=== PATIENT | female | born 1965 | race Hispanic/Latino ===

== ENCOUNTER 2016-11-22 19:20 | Emergency (ER) | payer MEDICAID ==
[2016-11-22] MEDS ORDERED: PROVENTIL IH ONE ×2 (19:52→19:57)
[2016-11-22 21:03] VITALS: BP 100/55
[2016-11-23] MEDS ORDERED: DUONEB 0.5 MG-3 MG/3 ML SOLN IH ONE (01:25)
[2016-11-23] MEDS ORDERED: MOTRIN PO ONE (01:26)
--- NOTE | 2016-11-23 01:32 | Emergency Department Report ---
HPI - General Chief Complaint: Adult Asthma Time Seen by Provider: 11/23/16 01:23 - HPI HPI: 51-year-old female comes in with complaint of shortness of breath with a nonproductive cough for 7 days. Patient admits to having fever and cough. She has a history of asthma. The patient is allergic to Levaquin and prednisone. ED Past Medical Hx - Past Medical History Previous Medical History?: Yes Hx Asthma: Yes - Surgical History Past Surgical History?: Yes Hx Cholecystectomy: Yes Additional Surgical History: Tonsils, Teeth - Social History Smoking Status: Never Smoker Substance Use Type: None - Medications Home Medications: Home Medications Medication Instructions Recorded Confirmed Last Taken Type ALBUTEROL Inhaler [Proair] 2 puff IH QID PRN #1 inhalation 11/23/16 Unknown Rx ED Review of Systems ROS: Stated complaint: VEE Other details as noted in HPI Constitutional: chills, fever Respiratory: cough, shortness of breath, wheezing Cardiovascular: denies: chest pain, palpitations Endocrine: no symptoms reported Physical Exam - Physical Exam Vital Signs: Vital Signs 11/22/16 11/22/16 11/22/16 19:59 20:09 20:58 Temperature 99.2 F Pulse Rate 115 H Pulse Rate [ 110 H 98 H Posterior Bilateral] Respiratory 22 Rate Respiratory 20 18 Rate [Posterior Bilateral] Blood Pressure 100/55 [Right] O2 Sat by Pulse 96 Oximetry General: GENERAL: Alert and oriented x3, no apparent distress, Normal Gait, atraumatic. Patient is actively coughing on exam. Physical Exam: HEAD: Head is normocephalic and a-traumatic. EYES: Extra ocular muscles are intact. Pupils are equal, round, and reactive to light and accommodation. EARS: symetrical, atraumatic, non tender, ear canal clear and moderate cerumen, tympanic membrance non inflamed. gross auditory nml bilaterally. NOSE: Nose symetrical, Nontender,Nares appeared normal. MOUTH:Mouth is well hydrated and without lesions. Tonsils nonerythematous or swollen, Uvula midline, Tongue not elevated. Mucous membranes are moist. Posterior pharynx clear, no exudate or lesions. Patent airways. She has no teeth NECK: Supple. Non edematous, No carotid bruits. No lymphadenopathy or thyromegaly. LUNGS: Symetrical with respiration, bilateral inspiratory and expiratory wheeze with mild crackles on the right lower lung. Sounds congested HEART: S1, S2 present, tachycardia rate and rhythm without murmur, no rubs, no gallops. ABDOMEN: No organomegaly was noted,Positive bowel sounds, soft, and non- distended. . Nontender to palpation on all Quadrants, NO CVA tenderness. NEUROLOGIC: No focal Deficit, Cranial nerves II through XII are grossly intact. No loss of sensation, No facial droop, PSYCHIATRIC: Mood is congruent with affect, denies suicidal or homicidal ideations. SKIN: Warm and dry, No lesions, No ulceration or induration present ED Course Vital Signs 11/22/16 11/22/16 11/22/16 19:59 20:09 20:58 Temperature 99.2 F Pulse Rate 115 H Pulse Rate [ 110 H 98 H Posterior Bilateral] Respiratory 22 Rate Respiratory 20 18 Rate [Posterior Bilateral] Blood Pressure 100/55 [Right] O2 Sat by Pulse 96 Oximetry - Reevaluation(s) Reevaluation #1: 11/23/16 03:52 Patient was reevaluated by this provider her lungs are clear now patient reports she feels much better ED Medical Decision Making - Lab Data Result diagrams: 11/23/16 01:30 11/23/16 01:30 - Medical Decision Making Assessment evaluated by this provider fast track. No labs have been drawn orders were placed at 1923. It's now 1:30 1 in the morning. We will order another round of dual nebs. Order Motrin 800 mg by mouth for fever. Will reevaluate patient. Critical care attestation.: If time is entered above; I have spent that time in minutes in the direct care of this critically ill patient, excluding procedure time. ED Disposition Clinical Impression: Asthma Qualifiers: Asthma severity: unspecified severity Asthma complication type: uncomplicated Qualified Code(s): J45.909 - Unspecified asthma, uncomplicated Disposition: DISCHARGED TO HOME OR SELFCARE Is pt being admited?: No Does the pt Need Aspirin: No Condition: Stable Instructions: Asthma (ED) Additional Instructions: Please use her inhaler as prescribed. Follow up with her primary care provider. We have referred to to one listed below. Prescriptions: ALBUTEROL Inhaler [Proair] 2 puff IH QID PRN #1 inhalation PRN Reason: Shortness Of Breath Referrals: PRIMARY CARE, [Primary Care Provider] - 3-5 Days JEANETTE PENALOZA MD [Staff Physician] - 3-5 Days
--- NOTE | 2016-11-23 01:53 | XRay Report ---
FINAL REPORT EXAM: XR CHEST ROUTINE 2V HISTORY: Shortness of breath COMPARISON: None available. FINDINGS:: Frontal and lateral views of the chest obtained. Cardiac silhouette is within normal limits. No focal consolidation or effusion. No pneumothorax. Visualized bony thorax is grossly intact. Mild calcification aortic arch. Mild hyperinflation of the lungs. IMPRESSION:: No focal consolidation. Mild hyperinflation of the lungs. There may be mild underlying COPD/emphysema.
[2016-11-23 02:24] LABS: Anion Gap 19 mmol/L; BUN/Creatinine Ratio 28.75; Blood Urea Nitrogen 23 mg/dL (7-17); Calcium 8.7 mg/dL (8.4-10.2); Carbon Dioxide 26 mmol/L (22-30); Chloride 99.7 mmol/L (98-107); Glucose 99 mg/dL (65-100); Potassium 3.7 mmol/L (3.6-5.0); Sodium 141 mmol/L (137-145)
[2016-11-23 02:54] LABS: Basophils % (Auto) 0.2 % (0.0-1.8); Eosinophils % (Auto) 0.1 % (0.0-4.3); Hematocrit 36.6 % (30.3-42.9); Hemoglobin 12.3 gm/dl (10.1-14.3); Mean Corpuscular HGB Conc 34 % (30-34); Mean Corpuscular Hemoglobin 30 pg (28-32); Mean Corpuscular Volume 88 fl (79-97); Platelet Count 142 K/mm3 (140-440); Red Blood Count 4.15 M/mm3 (3.65-5.03); Red Cell Distribution Width 13.3 % (13.2-15.2); White Blood Count 4.3 K/mm3 (4.5-11.0)
== END 2016-11-23 04:42 | disposition home or self-care (01) ==
LOC: ED 19:20
DX: J45.909 Unspecified asthma, uncomplicated (principal)
CPT/HCPCS: 36415; 71020; 80048; 84484; 84703; 85025; 94640

== ENCOUNTER 2019-04-14 12:30 | Emergency (ER) | payer MEDICAID ==
--- NOTE | 2019-04-14 12:38 | Emergency Department Report ---
Blank Doc - Documentation Documentation: This is a 54-year-old female that presents with lower back and right hip pain s/p fall. This initial assessment/diagnostic orders/clinical plan/treatment(s) is/are subject to change based on patient's health status, clinical progression and re- assessment by fellow clinical providers in the ED. Further treatment and workup at subsequent clinical providers discretion. Patient/guardians urged not to elope from the ED as their condition may be serious if not clinically assessed and managed. Initial orders include: 1- Patient sent to [facility] for further evaluation and treatment 2- xrays
[2019-04-14 12:47] VITALS: BP 111/69
--- NOTE | 2019-04-14 14:13 | XRay Report ---
X-RAY SPINE, ONE VIEW HISTORY: Pain. IMPRESSION: A single AP view of the lumbar spine and pelvis is presented. No lateral view is presente d. There appears to be normal height and alignment of the lumbar vertebra. No obvious fracture or bon e lesion. Mild degenerative changes are noted at L4-5 and L5-S1. The sacrum and SI joints are unremar kable. Signer Name: Delvin Donohue Jr, MD Signed: 04/14/2019 2:08 PM Workstation Name: [id number]
--- NOTE | 2019-04-14 14:18 | XRay Report ---
Right hip, 2 views INDICATION: pain s/p fall. COMPARISON: None. IMPRESSION: No acute osseous or soft tissue abnormality. No significant DJD. Signer Name: Delvin Donohue Jr, MD Signed: 04/14/2019 2:13 PM Workstation Name: [id number]
== END 2019-04-14 12:45 | disposition left against medical advice (07) ==
LOC: ED 12:30
DX: M79.604 Pain in right leg (principal); M25.551 Pain in right hip; Z53.21 Procedure and treatment not carried out due to patient leaving prior to being seen by health care provider
CPT/HCPCS: 72020

== ENCOUNTER 2019-09-14 03:02 | Emergency (ER) | payer MEDICAID ==
[2019-09-14 03:56] VITALS: BP 132/78
[2019-09-14] MEDS ORDERED: IBUPROFEN 800 MG TAB PO ONE (07:13)
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
--- NOTE | 2019-09-14 08:38 | XRay Report ---
LEFT KNEE 2 VIEWS INDICATION: pain after fall. COMPARISON: None. IMPRESSION: Normal bone mineralization. A small avulsed bony fragment measuring 1.9 x 0.4 cm is iden tified from the medial distal femur at the insertion site of the proximal MCL. This presumably repres ents an acute avulsion injury. The remaining bony structures are intact. No significant joint pathol ogy is appreciated. Suprapatellar bursa is inadequately imaged on the lateral view. Consider consulta tion with orthopedics. Signer Name: Delvin Donohue Jr, MD Signed: 09/14/2019 8:34 AM Workstation Name: [id number]
== END 2019-09-14 10:09 | disposition home or self-care (01) ==
LOC: ED 03:02
PROC: 2W3MX1Z Immobilization of Left Lower Extremity using Splint (ICD-10-PCS; principal; 2019-09-14)
DX: S82.002A Unspecified fracture of left patella, initial encounter for closed fracture (principal); M25.571 Pain in right ankle and joints of right foot; M25.572 Pain in left ankle and joints of left foot; F17.200 Nicotine dependence, unspecified, uncomplicated; J44.9 Chronic obstructive pulmonary disease, unspecified; Z90.49 Acquired absence of other specified parts of digestive tract; Z98.51 Tubal ligation status; Z79.899 Other long term (current) drug therapy; Y04.8XXA Assault by other bodily force, initial encounter; Y93.89 Activity, other specified; Y92.89 Other specified places as the place of occurrence of the external cause; Y99.8 Other external cause status

== ENCOUNTER 2019-12-27 23:55 | Emergency (ER) | payer MEDICAID ==
[2019-12-28 00:10] VITALS: BP 112/66
--- NOTE | 2019-12-28 03:45 | Emergency Department Report ---
ED Shortness of Breath HPI - General Chief Complaint: Dyspnea/Respdistress Stated Complaint: VEE Time Seen by Provider: 12/28/19 00:54 Source: patient, EMS Mode of arrival: Ambulatory Limitations: No Limitations - History of Present Illness Initial Comments: 54 yo F, hx of asthma, presents to ED with SOB. Pt requesting albuterol MDI refill. Pt denies fever, reports cough. Pt denies contact with anyone who has tested positive for COVID-19 MD Complaint: shortness of breath, "asthma attack" -: days(s) (3) Severity: mild Consistency: intermittent Improves With: rest Worsens With: exertion Known History Of: asthma Treatments Prior to Arrival: none - Related Data Previous Rx's Medication Instructions Recorded Last Taken Type Budesoni/Formotero 160-4.5(Nf) 2 puff IH BID #1 inha 01/05/14 Unknown Rx [Symbicort 160-4.5] Montelukast Sodium [Singulair] 10 mg PO DAILY #30 tablet 01/05/14 Unknown Rx Albuterol INH(or & Nicu Only) 2 puff IH QID PRN #1 inhalation 02/28/14 Unknown Rx [ProAir HFA Inhaler] Azithromycin [Zithromax TAB] 500 mg PO QDAY #5 tablet 02/28/14 Unknown Rx Loratadine (Nf) [Claritin] 10 mg PO DAILY #30 tablet 02/28/14 Unknown Rx predniSONE [Deltasone] 50 mg PO QDAY #5 tab 02/28/14 Unknown Rx Albuterol INH(or & Nicu Only) 2 puff IH QID PRN #1 inhalation 11/23/16 Unknown Rx [Proair] Acetaminophen with Codeine 1 each PO Q6HR PRN #12 tablet 09/14/19 Unknown Rx [Acetaminophen-Codeine #2 TAB] Allergies Allergy/AdvReac Type Severity Reaction Status Date / Time No Known Allergies Allergy Verified 09/14/19 03:07 ED Review of Systems ROS: Stated complaint: VEE Other details as noted in HPI Comment: All other systems reviewed and negative Constitutional: denies: fever Respiratory: cough, wheezing Cardiovascular: denies: chest pain ED Past Medical Hx - Past Medical History Previous Medical History?: Yes Hx Psychiatric Treatment: No Hx Asthma: Yes Hx COPD: Yes - Surgical History Past Surgical History?: Yes Hx Cholecystectomy: Yes Additional Surgical History: tubal ligation. tosillectomy - Social History Smoking Status: Current Some Day Smoker Substance Use Type: None - Medications Home Medications: Home Medications Medication Instructions Recorded Confirmed Last Taken Type Budesoni/Formotero 160-4.5(Nf) 2 puff IH BID #1 inha 01/05/14 Unknown Rx [Symbicort 160-4.5] Montelukast Sodium [Singulair] 10 mg PO DAILY #30 tablet 01/05/14 Unknown Rx Albuterol INH(or & Nicu Only) 2 puff IH QID PRN #1 inhalation 02/28/14 Unknown Rx [ProAir HFA Inhaler] Azithromycin [Zithromax TAB] 500 mg PO QDAY #5 tablet 02/28/14 Unknown Rx Loratadine (Nf) [Claritin] 10 mg PO DAILY #30 tablet 02/28/14 Unknown Rx predniSONE [Deltasone] 50 mg PO QDAY #5 tab 02/28/14 Unknown Rx Albuterol INH(or & Nicu Only) 2 puff IH QID PRN #1 inhalation 11/23/16 Unknown Rx [Proair] Acetaminophen with Codeine 1 each PO Q6HR PRN #12 tablet 09/14/19 Unknown Rx [Acetaminophen-Codeine #2 TAB] ED Physical Exam - General Limitations: No Limitations General appearance: alert, in no apparent distress - Head Head exam: Present: atraumatic, normocephalic - Eye Eye exam: Present: normal appearance - ENT ENT exam: Present: mucous membranes moist - Neck Neck exam: Present: normal inspection - Respiratory Respiratory exam: Present: wheezes (very faint). Absent: respiratory distress - Cardiovascular Cardiovascular Exam: Present: regular rate, normal rhythm - GI/Abdominal GI/Abdominal exam: Present: soft. Absent: distended - Extremities Exam Extremities exam: Present: normal inspection - Neurological Exam Neurological exam: Present: alert, oriented X3 - Psychiatric Psychiatric exam: Present: normal affect, normal mood - Skin Skin exam: Present: warm, dry, intact, normal color ED Course Vital Signs 12/28/19 12/28/19 00:08 01:03 Pulse Rate 106 H Respiratory 18 Rate Blood Pressure 112/66 O2 Sat by Pulse 92 91 Oximetry ED Medical Decision Making - Medical Decision Making 54 yo F w/ asthma. Requesting refill on albuterol. Does not want neb treatment or CXR. Pt denies fever, but refusing temperature check. Pt then eloped and never returned. Pt in no respiratory distress, appeared nontoxic. - Differential Diagnosis asthma, pneumonia, Critical care attestation.: If time is entered above; I have spent that time in minutes in the direct care of this critically ill patient, excluding procedure time. ED Disposition Clinical Impression: Asthma exacerbation Disposition: ELOPED Is pt being admited?: No Condition: Stable Referrals: PRIMARY CARE, [Primary Care Provider] - 3-5 Days
== END 2019-12-28 01:07 | disposition left against medical advice (07) ==
LOC: ED 23:55
DX: J45.901 Unspecified asthma with (acute) exacerbation (principal); F17.200 Nicotine dependence, unspecified, uncomplicated; Z90.49 Acquired absence of other specified parts of digestive tract; Z98.51 Tubal ligation status; Z90.79 Acquired absence of other genital organ(s); Z79.899 Other long term (current) drug therapy

== ENCOUNTER 2020-08-15 16:31 | Emergency (ER) | payer MEDICAID ==
[2020-08-15 16:43] VITALS: BP 122/50
[2020-08-15] MEDS ORDERED: IPRATROPIUM 0.02% NEBU 2.5 ML IH ONE ×2 (16:51→22:38)
[2020-08-15] MEDS ORDERED: ALBUTEROL 2.5 MG/3 ML NEBU IH ONE ×2 (16:51→22:38)
[2020-08-15] MEDS ORDERED: dexAMETHasone 20 MG/5 ML VIAL IV ONE (16:51)
--- NOTE | 2020-08-15 16:51 | Event Note ---
ED Screening Note ED Screening Note: +cough with productive cough +SOB +wheezing +chills no v/d no fever PMHx asthma has not used anything in october 2019 for asthma tachycardia, hypoxia placed on oxygen This initial assessment/diagnostic orders/clinical plan/treatment(s) is/are subject to change based on patients health status, clinical progression and re- assessment by fellow clinical providers in the ED. Further treatment and workup at subsequent clinical providers discretion. Patient/guardian urged not to elope from the ED as their condition may be serious if not clinically assessed and managed. Initial orders include: labs CXR neb tx steroid
[2020-08-15] MEDS ORDERED: predniSONE 20 MG TAB PO ONE (22:38)
[2020-08-15] MEDS ORDERED: AZITHROMYCIN 250 MG TAB PO ONE (22:38)
--- NOTE | 2020-08-15 22:43 | Emergency Department Report ---
ED Asthma HPI - General Chief Complaint: Upper Respiratory Infection Stated Complaint: RESP ISSUES PUI?: No Time Seen by Provider: 08/15/20 16:49 Source: patient Mode of arrival: Ambulatory Limitations: No Limitations - History of Present Illness Initial Comments: Chief complaint: Shortness of breath wheezing cough HPI: This is a 35-year-old female with history of COPD, asthma, tobacco dependence who presents with shortness of breath cough for several days. She denies fever. She does have sputum production. She denies body aches. She is concerned about possible pneumonia. She denies chest pain. Denies abdominal pain. She feels slightly better with breathing treatment. She does not require oxygen. Oxygen saturation 98% on room air in triage. Patient politely declined lab work. When asked about chest radiograph she states that "however I do not have one.". Complaint: shortness of breath, wheezing -: Gradual, days(s) (Several days) Asthma History: history of frequent attac Severity: mild Context: medication non-compliance Associated Symptoms: productive cough - Related Data Previous Rx's Medication Instructions Recorded Last Taken Type Budesoni/Formotero 160-4.5(Nf) 2 puff IH BID #1 inha 01/05/14 Unknown Rx [Symbicort 160-4.5] Montelukast Sodium [Singulair] 10 mg PO DAILY #30 tablet 01/05/14 Unknown Rx Albuterol Mdi (or & Nicu Only) 2 puff IH QID PRN #1 inhalation 02/28/14 Unknown Rx [ProAir HFA Inhaler] Azithromycin [Zithromax TAB] 500 mg PO QDAY #5 tablet 02/28/14 Unknown Rx Loratadine (Nf) [Claritin] 10 mg PO DAILY #30 tablet 02/28/14 Unknown Rx predniSONE [Deltasone] 50 mg PO QDAY #5 tab 02/28/14 Unknown Rx Albuterol Mdi (or & Nicu Only) 2 puff IH QID PRN #1 inhalation 11/23/16 Unknown Rx [Proair] Acetaminophen with Codeine 1 each PO Q6HR PRN #12 tablet 09/14/19 Unknown Rx [Acetaminophen-Codeine #2 TAB] Doxycycline Hyclate [Doxycycline 100 mg PO Q12HR 7 Days #14 tab 08/15/20 Unknown Rx Hyclate TAB] Prednisone [predniSONE 10 mg 10 mg PO .TAPER #1 tab.ds.pk 08/15/20 Unknown Rx (6-Day Pack, 21 Tabs)] Allergies Allergy/AdvReac Type Severity Reaction Status Date / Time No Known Allergies Allergy Verified 08/15/20 16:36 ED Review of Systems ROS: Stated complaint: RESP ISSUES Other details as noted in HPI Comment: All other systems reviewed and negative Constitutional: denies: fever, malaise Respiratory: cough, shortness of breath, wheezing Cardiovascular: denies: chest pain Gastrointestinal: denies: abdominal pain, nausea, vomiting ED Past Medical Hx - Past Medical History Previous Medical History?: Yes Hx Psychiatric Treatment: No Hx Asthma: Yes Hx COPD: Yes - Surgical History Past Surgical History?: Yes Hx Cholecystectomy: Yes Additional Surgical History: tubal ligation. tosillectomy - Social History Smoking Status: Current Every Day Smoker Substance Use Type: None - Medications Home Medications: Home Medications Medication Instructions Recorded Confirmed Last Taken Type Budesoni/Formotero 160-4.5(Nf) 2 puff IH BID #1 inha 01/05/14 Unknown Rx [Symbicort 160-4.5] Montelukast Sodium [Singulair] 10 mg PO DAILY #30 tablet 01/05/14 Unknown Rx Albuterol Mdi (or & Nicu Only) 2 puff IH QID PRN #1 inhalation 02/28/14 Unknown Rx [ProAir HFA Inhaler] Azithromycin [Zithromax TAB] 500 mg PO QDAY #5 tablet 02/28/14 Unknown Rx Loratadine (Nf) [Claritin] 10 mg PO DAILY #30 tablet 02/28/14 Unknown Rx predniSONE [Deltasone] 50 mg PO QDAY #5 tab 02/28/14 Unknown Rx Albuterol Mdi (or & Nicu Only) 2 puff IH QID PRN #1 inhalation 11/23/16 Unknown Rx [Proair] Acetaminophen with Codeine 1 each PO Q6HR PRN #12 tablet 09/14/19 Unknown Rx [Acetaminophen-Codeine #2 TAB] Doxycycline Hyclate [Doxycycline 100 mg PO Q12HR 7 Days #14 tab 08/15/20 Unknown Rx Hyclate TAB] Prednisone [predniSONE 10 mg 10 mg PO .TAPER #1 tab.ds.pk 08/15/20 Unknown Rx (6-Day Pack, 21 Tabs)] ED Physical Exam - General Limitations: No Limitations General appearance: alert, in no apparent distress, other (Disheveled appearance, dirty clothing,) - Head Head exam: Present: atraumatic, normocephalic - Eye Eye exam: Present: normal appearance - ENT ENT exam: Present: mucous membranes moist - Neck Neck exam: Present: normal inspection, full ROM - Respiratory Respiratory exam: Present: wheezes, prolonged expiratory. Absent: rales, rhonchi, accessory muscle use - Cardiovascular Cardiovascular Exam: Present: regular rate, normal rhythm, normal heart sounds. Absent: systolic murmur, diastolic murmur, rubs, gallop - GI/Abdominal GI/Abdominal exam: Present: soft, normal bowel sounds. Absent: distended, tenderness, guarding, rebound - Extremities Exam Extremities exam: Present: normal inspection - Neurological Exam Neurological exam: Present: alert, oriented X3, normal gait (Steady normal gait) - Psychiatric Psychiatric exam: Present: normal affect, normal mood - Skin Skin exam: Present: warm, dry, intact, normal color. Absent: rash ED Course Vital Signs 08/15/20 08/15/20 08/15/20 16:42 16:43 17:10 Temperature 99.2 F 99.2 F Pulse Rate 121 H Pulse Rate [ 82 Throughout] Respiratory 24 24 Rate Respiratory 16 Rate [ Throughout] Blood Pressure 122/50 Blood Pressure 122/50 [Right] O2 Sat by Pulse 88 Oximetry 08/15/20 23:24 Temperature Pulse Rate Pulse Rate [ 88 Throughout] Respiratory Rate Respiratory 16 Rate [ Throughout] Blood Pressure Blood Pressure [Right] O2 Sat by Pulse Oximetry ED Medical Decision Making - Medical Decision Making Acute asthma/COPD exacerbation: In the setting of tobacco abuse and history of COPD, antibiotics are indicated. Patient also received multiple nebulizer treatments. Patient initially refused questions regarding SI or harming others. She denies suicidal homicidal ideation to me at this time. Patient does not appear to be a harm to herself or others. Patient refused p.o. medication. I ordered azithromycin and prednisone. She refuses repeat vital signs. Patient is ambulatory without difficulty. She is speaking full word sentences without respiratory distress. I do not anticipate clinical deterioration. She is discharged to self-care. She did allow albuterol nebulizer treatments x2. I have prescribed doxycycline and prednisone. Critical care attestation.: If time is entered above; I have spent that time in minutes in the direct care of this critically ill patient, excluding procedure time. ED Disposition Clinical Impression: Acute asthma exacerbation, COPD with acute exacerbation Disposition: TO HOME OR SELFCARE Is pt being admited?: No Does the pt Need Aspirin: No Condition: Stable Instructions: Chronic Obstructive Pulmonary Disease (ED), Chronic Obstructive Pulmonary Disease, [id number], Asthma, Adult, [id number] Prescriptions: Doxycycline Hyclate [Doxycycline Hyclate TAB] 100 mg PO Q12HR 7 Days #14 tab Prednisone [predniSONE 10 mg (6-Day Pack, 21 Tabs)] 10 mg PO .TAPER #1 tab.ds.pk Referrals: BRII CORDON MD [Staff Physician] - 3-5 Days
== END 2020-08-15 23:45 | disposition home or self-care (01) ==
LOC: ED 16:31
DX: J44.1 Chronic obstructive pulmonary disease with (acute) exacerbation (principal); Z90.49 Acquired absence of other specified parts of digestive tract; Z90.89 Acquired absence of other organs; Z98.51 Tubal ligation status; F17.200 Nicotine dependence, unspecified, uncomplicated; Z79.899 Other long term (current) drug therapy
CPT/HCPCS: 94640; 94644

== ENCOUNTER 2020-08-21 | Emergency (ER) | payer MEDICAID ==
[2020-08-21 00:06] VITALS: BP 149/73
== END 2020-08-22 02:24 ==
LOC: ED
DX: R06.00 Dyspnea, unspecified (principal); Z53.21 Procedure and treatment not carried out due to patient leaving prior to being seen by health care provider

== ENCOUNTER 2020-09-04 14:51 | Emergency (ER) | payer MEDICAID ==
[2020-09-04 15:03] VITALS: BP 149/75
[2020-09-04] MEDS ORDERED: ACETAMINOPHEN 325 MG TAB PO PRN (15:17)
[2020-09-04] MEDS ORDERED: KETOROLAC 30 MG/1 ML INJ IV ONE (15:17)
[2020-09-04] MEDS ORDERED: ONDANSETRON 4 MG/2 ML INJ IV ONE (15:17)
[2020-09-04] MEDS ORDERED: AZITHROMYCIN 500 MG in SODIUM CHLORIDE 0.9% 250ML 250 ML IV ONE (15:17)
[2020-09-04] MEDS ORDERED: cefTRIAXone/NS 2 GM/100 ML 2 GM/100 ML BAG IV ONE (15:17)
[2020-09-04] MEDS ORDERED: SODIUM CHLORIDE 0.9% 1000 ML 1,000 ML IV ONE (15:23)
--- NOTE | 2020-09-04 15:38 | Emergency Department Report ---
ED General Adult HPI - General Chief complaint: Nausea/Vomiting/Diarrhea Stated complaint: FLU SX Time Seen by Provider: 09/04/20 15:16 Source: patient Mode of arrival: Ambulatory Limitations: No Limitations - History of Present Illness Initial comments: Patient is a 55-year-old female who is presenting with cough congestion nausea vomiting. Patient states symptoms been present for approximately 4 days. Symptoms are worsening. States she has a cough that is wet. There is pain in the right lower ribs when she coughs. She is had multipl e episodes of nausea vomiting. States there is body aches and chills. Patient states her worst complaint is that when she walks several feet she gets very short of breath. Feels as though she is going to lose consciousness. - Related Data Previous Rx's Medication Instructions Recorded Last Taken Type Budesoni/Formotero 160-4.5(Nf) 2 puff IH BID #1 inha 01/05/14 Unknown Rx [Symbicort 160-4.5] Montelukast Sodium [Singulair] 10 mg PO DAILY #30 tablet 01/05/14 Unknown Rx Albuterol Mdi (or & Nicu Only) 2 puff IH QID PRN #1 inhalation 02/28/14 Unknown Rx [ProAir HFA Inhaler] Azithromycin [Zithromax TAB] 500 mg PO QDAY #5 tablet 02/28/14 Unknown Rx Loratadine (Nf) [Claritin] 10 mg PO DAILY #30 tablet 02/28/14 Unknown Rx predniSONE [Deltasone] 50 mg PO QDAY #5 tab 02/28/14 Unknown Rx Albuterol Mdi (or & Nicu Only) 2 puff IH QID PRN #1 inhalation 11/23/16 Unknown Rx [Proair] Acetaminophen with Codeine 1 each PO Q6HR PRN #12 tablet 09/14/19 Unknown Rx [Acetaminophen-Codeine #2 TAB] Albuterol Mdi (or & Nicu Only) 2 puff IH QID PRN #8.5 gram 08/15/20 Unknown Rx [ProAir HFA Inhaler] Doxycycline Hyclate [Doxycycline 100 mg PO Q12HR 7 Days #14 tab 08/15/20 Unknown Rx Hyclate TAB] Prednisone [predniSONE 10 mg 10 mg PO .TAPER #1 tab.ds.pk 08/15/20 Unknown Rx (6-Day Pack, 21 Tabs)] Albuterol Mdi (or & Nicu Only) 2 puff IH QID PRN #1 inhalation 09/04/20 Unknown Rx [ProAir HFA Inhaler] Amoxicillin [Amoxicillin TAB] 875 mg PO BID #14 tablet 09/04/20 Unknown Rx Ondansetron [Zofran Odt] 4 mg PO Q8HR #10 tab.rapdis 09/04/20 Unknown Rx predniSONE [Deltasone] 20 mg PO QDAY #5 tab 09/04/20 Unknown Rx Allergies Allergy/AdvReac Type Severity Reaction Status Date / Time No Known Allergies Allergy Verified 09/04/20 14:54 ED Review of Systems ROS: Stated complaint: FLU SX Other details as noted in HPI Comment: All other systems reviewed and negative ED Past Medical Hx - Past Medical History Hx Psychiatric Treatment: No Hx Asthma: Yes Hx COPD: Yes - Surgical History Hx Cholecystectomy: Yes Additional Surgical History: tubal ligation. tosillectomy - Social History Smoking Status: Current Every Day Smoker Substance Use Type: None - Medications Home Medications: Home Medications Medication Instructions Recorded Confirmed Last Taken Type Budesoni/Formotero 160-4.5(Nf) 2 puff IH BID #1 inha 01/05/14 Unknown Rx [Symbicort 160-4.5] Montelukast Sodium [Singulair] 10 mg PO DAILY #30 tablet 01/05/14 Unknown Rx Albuterol Mdi (or & Nicu Only) 2 puff IH QID PRN #1 inhalation 02/28/14 Unknown Rx [ProAir HFA Inhaler] Azithromycin [Zithromax TAB] 500 mg PO QDAY #5 tablet 02/28/14 Unknown Rx Loratadine (Nf) [Claritin] 10 mg PO DAILY #30 tablet 02/28/14 Unknown Rx predniSONE [Deltasone] 50 mg PO QDAY #5 tab 02/28/14 Unknown Rx Albuterol Mdi (or & Nicu Only) 2 puff IH QID PRN #1 inhalation 11/23/16 Unknown Rx [Proair] Acetaminophen with Codeine 1 each PO Q6HR PRN #12 tablet 09/14/19 Unknown Rx [Acetaminophen-Codeine #2 TAB] Albuterol Mdi (or & Nicu Only) 2 puff IH QID PRN #8.5 gram 08/15/20 Unknown Rx [ProAir HFA Inhaler] Doxycycline Hyclate [Doxycycline 100 mg PO Q12HR 7 Days #14 tab 08/15/20 Unknown Rx Hyclate TAB] Prednisone [predniSONE 10 mg 10 mg PO .TAPER #1 tab.ds.pk 08/15/20 Unknown Rx (6-Day Pack, 21 Tabs)] Albuterol Mdi (or & Nicu Only) 2 puff IH QID PRN #1 inhalation 09/04/20 Unknown Rx [ProAir HFA Inhaler] Amoxicillin [Amoxicillin TAB] 875 mg PO BID #14 tablet 09/04/20 Unknown Rx Ondansetron [Zofran Odt] 4 mg PO Q8HR #10 tab.rapdis 09/04/20 Unknown Rx predniSONE [Deltasone] 20 mg PO QDAY #5 tab 09/04/20 Unknown Rx ED Physical Exam - General Limitations: No Limitations General appearance: alert, in no apparent distress, other (ill appearuing but non toxic) - Head Head exam: Present: atraumatic, normocephalic - Eye Eye exam: Present: normal appearance - ENT ENT exam: Present: mucous membranes moist - Neck Neck exam: Present: normal inspection - Respiratory Respiratory exam: Present: respiratory distress (tachypnea), wheezes, rhonchi - Cardiovascular Cardiovascular Exam: Present: normal rhythm, tachycardia, normal heart sounds. Absent: systolic murmur, diastolic murmur, rubs, gallop - GI/Abdominal GI/Abdominal exam: Present: soft, normal bowel sounds. Absent: distended, tenderness, guarding, rebound - Extremities Exam Extremities exam: Present: normal inspection - Back Exam Back exam: Present: normal inspection - Neurological Exam Neurological exam: Present: alert, oriented X3 - Psychiatric Psychiatric exam: Present: normal affect, normal mood - Skin Skin exam: Present: warm, dry, intact, normal color. Absent: rash ED Course Vital Signs 09/04/20 09/04/20 09/04/20 15:03 16:05 17:02 Temperature 98.6 F Pulse Rate 109 H 103 H Pulse Rate [ Anterior Bilateral Throughout] Respiratory 18 18 Rate Respiratory Rate [Anterior Bilateral Throughout] Blood Pressure 149/75 [Right] O2 Sat by Pulse 86 100 100 Oximetry 09/04/20 09/04/20 18:01 18:29 Temperature Pulse Rate Pulse Rate [ 96 H Anterior Bilateral Throughout] Respiratory Rate Respiratory 20 Rate [Anterior Bilateral Throughout] Blood Pressure [Right] O2 Sat by Pulse 99 Oximetry - Reevaluation(s) Reevaluation #1: 09/04/20 19:43 Patient did meet sepsis criteria on arrival however the patient refused IV fluids antibiotics. Patient been very difficult and was belligerent. She states that she does not believe in COVID-19 states that the vaccine is made from snakes. Patient is very angry anytime we try to offer her any other treatment except for amoxicillin. Patient did eventually agreed to a breathing treatment. After the hour-long neb treatment her O2 sats were upper 90s at rest. Patient does not want to be admitted and she does not want any further medications. X-ray is most consistent with hyperinflation and COPD exacerbation but because of the chills nausea vomiting and body aches with the flu and COVID-19 I have not been ruled out at this time. Patient will be discharged AGAINST MEDICAL ADVICE. She is not excepting any further treatment from us. She is alert and oriented x3 and does appear despite her odd behavior to be of sound mind to make decisions for herself. She has been asked to return if her symptoms worsen. 09/04/20 19:45 ED Medical Decision Making - Lab Data Result diagrams: 09/04/20 15:35 09/04/20 15:35 Lab Results 09/04/20 09/04/20 09/04/20 Range/Units 15:35 15:35 15:35 WBC 3.3 L (4.5-11.0) K/mm3 RBC 4.25 (3.65-5.03) M/mm3 Hgb 12.6 (10.1-14.3) gm/dl Hct 39.9 (30.3-42.9) % MCV 94 (79-97) fl MCH 30 (28-32) pg MCHC 32 (30-34) % RDW 15.5 H (13.2-15.2) % Plt Count 262 (140-440) K/mm3 Lymph % (Auto) 33.1 (13.4-35.0) % [place] % (Auto) 12.1 H (0.0-7.3) % Eos % (Auto) 3.5 (0.0-4.3) % Baso % (Auto) 0.6 (0.0-1.8) % Lymph # (Auto) 1.1 L (1.2-5.4) K/mm3 [place] # (Auto) 0.4 (0.0-0.8) K/mm3 Eos # (Auto) 0.1 (0.0-0.4) K/mm3 Baso # (Auto) 0.0 (0.0-0.1) K/mm3 Seg Neutrophils % 50.7 (40.0-70.0) % Seg Neutrophils # 1.7 L (1.8-7.7) K/mm3 D-Dimer 270.88 H (0-234) ng/mlDDU Sodium 140 (137-145) mmol/L Potassium 4.7 (3.6-5.0) mmol/L Chloride 100.1 (98-107) mmol/L Carbon Dioxide 40 H (22-30) mmol/L Anion Gap 5 mmol/L BUN 8 (7-17) mg/dL Creatinine 0.6 (0.6-1.2) mg/dL Estimated GFR > 60 ml/min BUN/Creatinine Ratio 13 % Glucose 83 (65-100) mg/dL Lactic Acid (0.7-2.0) mmol/L Calcium 8.5 (8.4-10.2) mg/dL Ferritin (10.0-200.0) ng/mL Total Bilirubin 0.20 (0.1-1.2) mg/dL AST 20 (5-40) units/L ALT 14 (7-56) units/L Alkaline Phosphatase 87 (35-129) units/L Lactate Dehydrogenase 195 H (91-180) units/L C-Reactive Protein 0.20 (0.00-1.30) mg/dL Total Protein 6.1 L (6.3-8.2) g/dL Albumin 3.7 L (3.9-5) g/dL Albumin/Globulin Ratio 1.5 % 09/04/20 09/04/20 Range/Units 15:35 15:35 WBC (4.5-11.0) K/mm3 RBC (3.65-5.03) M/mm3 Hgb (10.1-14.3) gm/dl Hct (30.3-42.9) % MCV (79-97) fl MCH (28-32) pg MCHC (30-34) % RDW (13.2-15.2) % Plt Count (140-440) K/mm3 Lymph % (Auto) (13.4-35.0) % [place] % (Auto) (0.0-7.3) % Eos % (Auto) (0.0-4.3) % Baso % (Auto) (0.0-1.8) % Lymph # (Auto) (1.2-5.4) K/mm3 [place] # (Auto) (0.0-0.8) K/mm3 Eos # (Auto) (0.0-0.4) K/mm3 Baso # (Auto) (0.0-0.1) K/mm3 Seg Neutrophils % (40.0-70.0) % Seg Neutrophils # (1.8-7.7) K/mm3 D-Dimer (0-234) ng/mlDDU Sodium (137-145) mmol/L Potassium (3.6-5.0) mmol/L Chloride (98-107) mmol/L Carbon Dioxide (22-30) mmol/L Anion Gap mmol/L BUN (7-17) mg/dL Creatinine (0.6-1.2) mg/dL Estimated GFR ml/min BUN/Creatinine Ratio % Glucose (65-100) mg/dL Lactic Acid 0.50 L (0.7-2.0) mmol/L Calcium (8.4-10.2) mg/dL Ferritin 98.1 (10.0-200.0) ng/mL Total Bilirubin (0.1-1.2) mg/dL AST (5-40) units/L ALT (7-56) units/L Alkaline Phosphatase (35-129) units/L Lactate Dehydrogenase (91-180) units/L C-Reactive Protein (0.00-1.30) mg/dL Total Protein (6.3-8.2) g/dL Albumin (3.9-5) g/dL Albumin/Globulin Ratio % - Radiology Data Radiology results: image reviewed (Chest x-ray shows no infiltrate.) Critical care attestation.: If time is entered above; I have spent that time in minutes in the direct care of this critically ill patient, excluding procedure time. ED Disposition Clinical Impression: Suspected COVID-19 virus infection Asthma exacerbation Qualifiers: Asthma severity: moderate Asthma persistence: unspecified Qualified Code(s): J45.901 - Unspecified asthma with (acute) exacerbation Disposition: DC-07 LEFT AGAINST MED ADVICE Is pt being admited?: No Does the pt Need Aspirin: No Condition: Stable Instructions: Asthma, Adult, COVID-19 Frequently Asked Questions Referrals: [facility] MD [facility]STA [Referring] - 3-5 Days Time of Disposition: 19:47
[2020-09-04 16:04] LABS: Basophils % (Auto) 0.6 % (0.0-1.8); Eosinophils # (Auto) 0.1 K/mm3 (0.0-0.4); Eosinophils % (Auto) 3.5 % (0.0-4.3); Hematocrit 39.9 % (30.3-42.9); Hemoglobin 12.6 gm/dl (10.1-14.3); Lymphocytes # (Auto) 1.1 K/mm3 (1.2-5.4); Lymphocytes % (Auto) 33.1 % (13.4-35.0); Mean Corpuscular HGB Conc 32 % (30-34); Mean Corpuscular Volume 94 fl (79-97); Monocytes # (Auto) 0.4 K/mm3 (0.0-0.8); Monocytes % (Auto) 12.1 % (0.0-7.3); Platelet Count 262 K/mm3 (140-440); Red Blood Count 4.25 M/mm3 (3.65-5.03); Red Cell Distribution Width 15.5 % (13.2-15.2)
[2020-09-04 16:06] LABS: Alanine Aminotransferase 14 units/L (7-56); Albumin 3.7 g/dL (3.9-5); Blood Urea Nitrogen 8 mg/dL (7-17); Calcium 8.5 mg/dL (8.4-10.2); Hemolysis Index 7
[2020-09-04] MEDS ORDERED: ALBUTEROL 2.5 MG/3 ML NEBU IH ONE ×2 (16:06→18:16)
[2020-09-04] MEDS ORDERED: IPRATROPIUM 0.02% NEBU 2.5 ML IH ONE ×2 (16:06→18:17)
[2020-09-04 16:07] LABS: BUN/Creatinine Ratio 13
--- NOTE | 2020-09-04 16:08 | XRay Report ---
CHEST 1 VIEW, 09/04/2020 3:45 PM CLINICAL INFORMATION/INDICATION: Cough COMPARISON: Chest radiograph, 11/22/2016 FINDINGS: SUPPORT DEVICES: None. HEART: The cardiac silhouette is normal in size. LUNGS/PLEURA: The lungs are clear of focal airspace disease or significant pleural effusion. ADDITIONAL FINDINGS: No additional acute findings. IMPRESSION: 1. No evidence of acute cardiopulmonary process. Signer Name: Margo Mccain MD Signed: 09/04/2020 4:04 PM Workstation Name: [id number]
== END 2020-09-04 20:07 | disposition left against medical advice (07) ==
LOC: ED 14:51
DX: J45.901 Unspecified asthma with (acute) exacerbation (principal); Z20.828 Contact with and (suspected) exposure to other viral communicable diseases; Z90.49 Acquired absence of other specified parts of digestive tract; F17.200 Nicotine dependence, unspecified, uncomplicated; Z79.2 Long term (current) use of antibiotics; Z79.899 Other long term (current) drug therapy
CPT/HCPCS: 36415; 71045; 80053; 82140; 82728; 83615; 84145; 85025; 85379; 86140; 87040; 94640; 99284; J0456; J0696; J1885; J2405; J7030; J7050; 94644

== ENCOUNTER 2020-12-14 11:57 | Emergency (ER) | payer MEDICAID ==
[2020-12-14 12:46] VITALS: BP 120/68
--- NOTE | 2020-12-14 12:47 | Emergency Department Report ---
ED Medical Clearance HPI - General Stated complaint: HEADACHE Time Seen by Provider: 12/14/20 12:47 Source: patient - History of Present Illness Initial comments: 55-year-old female presents to the emergency room complaining of a 4- day history of shortness of breath and headache. Patient reports she is taking nothing for her headache. She reports she has ran out of her COPD and asthma medication for the last 4 days. She denies any fever no chills. She reports she is followed by [facility]. Onset/Timin -: days(s) Home medications: Previous Rx's Medication Instructions Recorded Last Taken Type Budesoni/Formotero 160-4.5(Nf) 2 puff IH BID #1 inha 01/05/14 Unknown Rx [Symbicort 160-4.5] Montelukast Sodium [Singulair] 10 mg PO DAILY #30 tablet 01/05/14 Unknown Rx Albuterol Mdi (or & Nicu Only) 2 puff IH QID PRN #1 inhalation 02/28/14 Unknown Rx [ProAir HFA Inhaler] Azithromycin [Zithromax TAB] 500 mg PO QDAY #5 tablet 02/28/14 Unknown Rx Loratadine (Nf) [Claritin] 10 mg PO DAILY #30 tablet 02/28/14 Unknown Rx predniSONE [Deltasone] 50 mg PO QDAY #5 tab 02/28/14 Unknown Rx Albuterol Mdi (or & Nicu Only) 2 puff IH QID PRN #1 inhalation 11/23/16 Unknown Rx [Proair] Acetaminophen with Codeine 1 each PO Q6HR PRN #12 tablet 09/14/19 Unknown Rx [Acetaminophen-Codeine #2 TAB] Albuterol Mdi (or & Nicu Only) 2 puff IH QID PRN #8.5 gram 08/15/20 Unknown Rx [ProAir HFA Inhaler] Doxycycline Hyclate [Doxycycline 100 mg PO Q12HR 7 Days #14 tab 08/15/20 Unknown Rx Hyclate TAB] Prednisone [predniSONE 10 mg 10 mg PO .TAPER #1 tab.ds.pk 08/15/20 Unknown Rx (6-Day Pack, 21 Tabs)] Amoxicillin [Amoxicillin TAB] 875 mg PO BID #14 tablet 09/04/20 Unknown Rx Ondansetron [Zofran Odt] 4 mg PO Q8HR #10 tab.rapdis 09/04/20 Unknown Rx predniSONE [Deltasone] 20 mg PO QDAY #5 tab 09/04/20 Unknown Rx Albuterol Mdi (or & Nicu Only) 2 puff IH QID PRN #1 inhalation 12/14/20 Unknown Rx [ProAir HFA Inhaler] Budesonide/Formoterol Fumarate 10.2 gm IH BID #1 hfa.aer.ad 12/14/20 Unknown Rx [Symbicort 160-4.5 Mcg Inhaler] Prednisone [predniSONE 5 mg (6-Day 5 mg PO .TAPER 1 Days #1 tab.ds.pk 12/14/20 Unknown Rx Pack, 21 Tabs)] Allergies/Adverse reactions: Allergies Allergy/AdvReac Type Severity Reaction Status Date / Time No Known Allergies Allergy Verified 09/04/20 14:54 ED Review of Systems ROS: Stated complaint: HEADACHE Other details as noted in HPI Comment: All other systems reviewed and negative ED Past Medical Hx - Past Medical History Hx Psychiatric Treatment: No Hx Asthma: Yes Hx COPD: Yes - Surgical History Hx Cholecystectomy: Yes Additional Surgical History: tubal ligation. tosillectomy - Social History Smoking Status: Current Every Day Smoker Substance Use Type: None - Medications Home Medications: Home Medications Medication Instructions Recorded Confirmed Last Taken Type Budesoni/Formotero 160-4.5(Nf) 2 puff IH BID #1 inha 01/05/14 Unknown Rx [Symbicort 160-4.5] Montelukast Sodium [Singulair] 10 mg PO DAILY #30 tablet 01/05/14 Unknown Rx Albuterol Mdi (or & Nicu Only) 2 puff IH QID PRN #1 inhalation 02/28/14 Unknown Rx [ProAir HFA Inhaler] Azithromycin [Zithromax TAB] 500 mg PO QDAY #5 tablet 02/28/14 Unknown Rx Loratadine (Nf) [Claritin] 10 mg PO DAILY #30 tablet 02/28/14 Unknown Rx predniSONE [Deltasone] 50 mg PO QDAY #5 tab 02/28/14 Unknown Rx Albuterol Mdi (or & Nicu Only) 2 puff IH QID PRN #1 inhalation 11/23/16 Unknown Rx [Proair] Acetaminophen with Codeine 1 each PO Q6HR PRN #12 tablet 09/14/19 Unknown Rx [Acetaminophen-Codeine #2 TAB] Albuterol Mdi (or & Nicu Only) 2 puff IH QID PRN #8.5 gram 08/15/20 Unknown Rx [ProAir HFA Inhaler] Doxycycline Hyclate [Doxycycline 100 mg PO Q12HR 7 Days #14 tab 08/15/20 Unknown Rx Hyclate TAB] Prednisone [predniSONE 10 mg 10 mg PO .TAPER #1 tab.ds.pk 08/15/20 Unknown Rx (6-Day Pack, 21 Tabs)] Amoxicillin [Amoxicillin TAB] 875 mg PO BID #14 tablet 09/04/20 Unknown Rx Ondansetron [Zofran Odt] 4 mg PO Q8HR #10 tab.rapdis 09/04/20 Unknown Rx predniSONE [Deltasone] 20 mg PO QDAY #5 tab 09/04/20 Unknown Rx Albuterol Mdi (or & Nicu Only) 2 puff IH QID PRN #1 inhalation 12/14/20 Unknown Rx [ProAir HFA Inhaler] Budesonide/Formoterol Fumarate 10.2 gm IH BID #1 hfa.aer.ad 12/14/20 Unknown Rx [Symbicort 160-4.5 Mcg Inhaler] Prednisone [predniSONE 5 mg (6-Day 5 mg PO .TAPER 1 Days #1 tab.ds.pk 12/14/20 Unknown Rx Pack, 21 Tabs)] ED Physical Exam - General Limitations: No Limitations General appearance: alert, in no apparent distress - Head Head exam: Present: atraumatic, normocephalic - Eye Eye exam: Present: normal appearance - ENT ENT exam: Present: normal exam - Respiratory Respiratory exam: Present: wheezes, rhonchi, prolonged expiratory - Cardiovascular Cardiovascular Exam: Present: regular rate - GI/Abdominal GI/Abdominal exam: Present: soft, normal bowel sounds - Back Exam Back exam: Present: normal inspection - Neurological Exam Neurological exam: Present: alert, oriented X3, normal gait - Psychiatric Psychiatric exam: Present: normal affect, normal mood - Skin Skin exam: Present: warm, dry, intact, normal color. Absent: rash ED Course Vital Signs 12/14/20 12:45 Temperature 98.6 F Pulse Rate 90 Respiratory 20 Rate Blood Pressure 120/68 [120/68] O2 Sat by Pulse 98 Oximetry ED Medical Decision Making - Medical Decision Making 55-year-old female presents to the emergency room complaining of a 4- day history of shortness of breath and headache. Patient reports she is taking nothing for her headache. She reports she has ran out of her COPD and asthma medication for the last 4 days. She denies any fever no chills. She reports she is followed by [facility]. Patient has been ordered a breathing treatment and prednisone. She refused any Tylenol or ibuprofen for headache. Respiratory has been called. Patient will be discharged on prednisone taper, refill on her Symbicort and albuterol and instructed to follow-up with [facility] primary care provider. Patient refuses breathing treatment and states that she has to catch a cab. ED Disposition Clinical Impression: Asthma exacerbation, COPD (chronic obstructive pulmonary disease) Disposition: TO HOME OR SELFCARE Is pt being admited?: No Does the pt Need Aspirin: No Condition: Stable Instructions: Chronic Obstructive Pulmonary Disease Exacerbation, Asthma, Adult, [id number], Chronic Obstructive Pulmonary Disease (ED) Additional Instructions: Please take medication as prescribed. Is very important for you to follow-up with your primary care provider. For your headache you can take Tylenol or ibuprofen. Prescriptions: Prednisone [predniSONE 5 mg (6-Day Pack, 21 Tabs)] 5 mg PO .TAPER 1 Days #1 tab.ds.pk Albuterol Mdi (or & Nicu Only) [ProAir HFA Inhaler] 2 puff IH QID PRN #1 inhalation PRN Reason: Shortness Of Breath Budesonide/Formoterol Fumarate [Symbicort 160-4.5 Mcg Inhaler] 10.2 gm IH BID #1 hfa.aer.ad Referrals: [facility] [Outside] - 3-5 Days Forms: AMA Form
[2020-12-14] MEDS ORDERED: DEXAMETHASONE 4 MG TAB PO ONE (12:50)
[2020-12-14] MEDS ORDERED: ALBUTEROL 2.5 MG/3 ML NEBU IH ONE (12:50)
== END 2020-12-14 13:42 | disposition home or self-care (01) ==
LOC: ED 11:57
DX: J44.9 Chronic obstructive pulmonary disease, unspecified (principal); F17.200 Nicotine dependence, unspecified, uncomplicated; Z90.49 Acquired absence of other specified parts of digestive tract; Z98.51 Tubal ligation status; Z79.899 Other long term (current) drug therapy
CPT/HCPCS: 99282

== ENCOUNTER 2021-01-14 12:20 | Emergency (ER) | payer MEDICAID ==
[2021-01-14 14:01] VITALS: BP 142/69
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
== END 2021-01-14 15:15 | disposition home or self-care (01) ==
LOC: ED 12:20
DX: J45.909 Unspecified asthma, uncomplicated (principal); Z76.0 Encounter for issue of repeat prescription; F17.200 Nicotine dependence, unspecified, uncomplicated; Z90.49 Acquired absence of other specified parts of digestive tract; Z90.89 Acquired absence of other organs; Z98.51 Tubal ligation status; Z79.899 Other long term (current) drug therapy
CPT/HCPCS: 82962

== ENCOUNTER 2021-01-19 22:47 | Emergency (ER) | payer MEDICAID | END 2021-01-20 05:30 | disposition left against medical advice (07) | LOC: ED 22:47 | DX: R06.00 Dyspnea, unspecified (principal); Z53.21 Procedure and treatment not carried out due to patient leaving prior to being seen by health care provider ==

== ENCOUNTER 2021-02-15 18:51 | Emergency (ER) | payer MEDICAID ==
[2021-02-15 22:35] VITALS: BP 140/65
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
== END 2021-02-15 22:30 | disposition home or self-care (01) ==
LOC: ED 18:51
DX: M25.511 Pain in right shoulder (principal); M25.512 Pain in left shoulder; R07.9 Chest pain, unspecified; V49.49XA Driver injured in collision with other motor vehicles in traffic accident, initial encounter; Y93.89 Activity, other specified; Y92.89 Other specified places as the place of occurrence of the external cause; Y99.8 Other external cause status
CPT/HCPCS: 71046; 99281; 99283

== ENCOUNTER 2021-02-28 20:51 | Observation (INO) | payer MEDICAID, OTHER ==
[2021-03-01] MEDS ORDERED: oxyCODONE /ACETAMINOPHEN 5-325MG TAB PO ONE (04:09)
[2021-03-01] MEDS ORDERED: IBUPROFEN 800 MG TAB PO ONE (04:09)
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
[2021-03-01] MEDS ORDERED: IPRATROPIUM 0.02% NEBU 2.5 ML IH ONE (04:21)
[2021-03-01] MEDS ORDERED: ALBUTEROL 2.5 MG/3 ML NEBU IH ONE (04:21)
[2021-03-01] MEDS ORDERED: methylPREDNISolone Sod Succinate 125 MG/2 ML INJ IV ONE (04:21)
[2021-03-01 04:57] LABS: Basophils % (Auto) 0.8 % (0.0-1.8); Eosinophils # (Auto) 0.3 K/mm3 (0.0-0.4); Eosinophils % (Auto) 7.1 % (0.0-4.3); Hematocrit 37.5 % (30.3-42.9); Hemoglobin 12.6 gm/dl (10.1-14.3); Lymphocytes % (Auto) 22.1 % (13.4-35.0); Mean Corpuscular HGB Conc 34 % (30-34); Mean Corpuscular Volume 93 fl (79-97); Monocytes # (Auto) 0.5 K/mm3 (0.0-0.8); Monocytes % (Auto) 10.1 % (0.0-7.3); Platelet Count 312 K/mm3 (140-440); Red Blood Count 4.03 M/mm3 (3.65-5.03); Red Cell Distribution Width 17.1 % (13.2-15.2)
[2021-03-01 05:13] LABS: Blood Urea Nitrogen 10 mg/dL (7-17); Calcium 8.7 mg/dL (8.4-10.2); Hemolysis Index 1
[2021-03-01 05:17] LABS: BUN/Creatinine Ratio 17
--- NOTE | 2021-03-01 05:38 | XRay Report ---
XR ribs BILAT w/PA chest 4+V INDICATION / CLINICAL INFORMATION: dyspnea hx of CVA COMPARISON: X-ray 09/04/2020 and 02/15/2021 FINDINGS: SUPPORT DEVICES: None. HEART / MEDIASTINUM: No significant abnormality. LUNGS / PLEURA: Lungs are clear. Costophrenic sulci are sharp. No pneumothorax. RIBS: Left ninth and 10th posterior rib fractures. The ninth rib fracture was seen on prior exam. The patient was not clearly visualized but is also likely remote. IMPRESSION: 1. Left posterior ninth and 10th rib fractures which are thought to be remote. Correlate with physica l examination. Signer Name: Ferdinand Temple MD Signed: 03/01/2021 5:34 AM Workstation Name: [id number]
[2021-03-01] MEDS ORDERED: predniSONE 20 MG TAB PO ONE (05:42)
[2021-03-01] MEDS ORDERED: ALBUTEROL 2.5 MG/3 ML NEBU IH PRN (05:46)
[2021-03-01] MEDS ORDERED: ACETAMINOPHEN 325 MG TAB PO PRN (05:46)
[2021-03-01] MEDS ORDERED: NALOXONE 0.4 MG/1 ML INJ IV PRN (05:46)
[2021-03-01] MEDS ORDERED: HYDROmorphone 1 MG/1 ML INJ IV PRN (05:46)
[2021-03-01] MEDS ORDERED: oxyCODONE /ACETAMINOPHEN 5-325MG TAB PO PRN (05:46)
[2021-03-01] MEDS ORDERED: ONDANSETRON 4 MG/2 ML INJ IV PRN (05:46)
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
[2021-03-01 06:37] VITALS: BP 125/71
[2021-03-01] MEDS ORDERED: IPRATROPIUM/ALBUTEROL SULFATE 3 ML AMPUL.NEB IH SCH (08:00)
[2021-03-01] MEDS ORDERED: BUDESONIDE 0.5 MG/2 ML NEBU IH SCH (08:00)
[2021-03-01] MEDS ORDERED: guaiFENesin ER 600 MG TAB PO SCH (10:00)
[2021-03-01] MEDS ORDERED: HEPARIN 5,000 UNIT/1 ML VIAL SUB-Q SCH (10:00)
[2021-03-01] MEDS ORDERED: NICOTINE 14 MG/24 HR PATCH TD SCH (10:00)
[2021-03-01] MEDS ORDERED: DOCUSATE SODIUM 100 MG CAP PO SCH (10:00)
[2021-03-01] MEDS ORDERED: methylPREDNISolone Sod Succinate 40 MG/1 ML INJ IV SCH (12:00)
--- NOTE | 2021-03-01 13:31 | Event Note ---
Date: 03/01/21 Patient left AMA before the shift change
== END 2021-03-01 11:48 | disposition left against medical advice (07) ==
LOC: ED 20:51 → 3A 03-01 05:42
PROVIDERS: ADMIT Internal Medicine Geriatric Medicine; ATTEND Internal Medicine
DX: J96.01 Acute respiratory failure with hypoxia (principal); J44.1 Chronic obstructive pulmonary disease with (acute) exacerbation; R60.0 Localized edema; F17.210 Nicotine dependence, cigarettes, uncomplicated; S22.42XG Multiple fractures of ribs, left side, subsequent encounter for fracture with delayed healing; V89.2XXD Person injured in unspecified motor-vehicle accident, traffic, subsequent encounter; Z90.49 Acquired absence of other specified parts of digestive tract; Z98.51 Tubal ligation status
CPT/HCPCS: 36415; 71111; 80048; 83880; 85025; 87040; 94644; 99284; G0378; J2930

== ENCOUNTER 2021-09-21 22:02 | Emergency (ER) | payer MEDICAID ==
[2021-09-21 23:53] VITALS: BP 108/62
[2021-09-22] MEDS ORDERED: ALBUTEROL 2.5 MG/3 ML NEBU IH ONE (00:58)
[2021-09-22] MEDS ORDERED: IPRATROPIUM 0.02% NEBU 2.5 ML IH ONE (00:58)
[2021-09-22] MEDS ORDERED: methylPREDNISolone Sod Succinate 125 MG/2 ML INJ IV ONE (01:00)
[2021-09-22] MEDS ORDERED: MAGNESIUM SULFATE 2 GM/50 ML BAG IV ONE (01:00)
--- NOTE | 2021-09-22 01:06 | Emergency Department Report ---
HPI - General Chief Complaint: Dyspnea/Respdistress Time Seen by Provider: 09/22/21 00:42 - HPI HPI: MSE 6 The patient is a 56-year-old female present with a chief complaint of shortness of breath. Patient states for the past 2 days she has had shortness of breath and dyspnea on exertion despite using her home O2 (3 L). Patient states for the same amount of time she is also noticed orthopnea and bilateral lower extremity edema. The patient states for the past week she has had intermittent tightness in the epigastric region. The patient states she has had a cough for the past 3 to 4 days has been occasionally productive of yellow sputum. Patient denies history of fever. Patient states she is not vaccinated against Covid. The patient states her home O2 ran out today and it is not scheduled to be replaced until 09/26/2021. ED Past Medical Hx - Past Medical History Hx Asthma: Yes Hx COPD: Yes (3 L nasal cannula home O2) - Surgical History Hx Cholecystectomy: Yes Additional Surgical History: tubal ligation. tosillectomy - Family History Family history: no significant - Social History Smoking Status: Current Every Day Smoker Substance Use Type: None (Denies illicit drug) - Medications Home Medications: Home Medications Medication Instructions Recorded Confirmed Last Taken Type Budesoni/Formotero 160-4.5(Nf) 2 puff IH BID #1 inha 01/05/14 Unknown Rx [Symbicort 160-4.5] Montelukast Sodium [Singulair] 10 mg PO DAILY #30 tablet 01/05/14 Unknown Rx Albuterol Mdi (or & Nicu Only) 2 puff IH QID PRN #1 inhalation 02/28/14 Unknown Rx [ProAir HFA Inhaler] Azithromycin [Zithromax TAB] 500 mg PO QDAY #5 tablet 02/28/14 Unknown Rx Loratadine (Nf) [Claritin] 10 mg PO DAILY #30 tablet 02/28/14 Unknown Rx predniSONE [Deltasone] 50 mg PO QDAY #5 tab 02/28/14 Unknown Rx Albuterol Mdi (or & Nicu Only) 2 puff IH QID PRN #1 inhalation 11/23/16 Unknown Rx [Proair] Acetaminophen with Codeine 1 each PO Q6HR PRN #12 tablet 09/14/19 Unknown Rx [Acetaminophen-Codeine #2 TAB] Albuterol Mdi (or & Nicu Only) 2 puff IH QID PRN #8.5 gram 08/15/20 Unknown Rx [ProAir HFA Inhaler] Doxycycline Hyclate [Doxycycline 100 mg PO Q12HR 7 Days #14 tab 08/15/20 Unknown Rx Hyclate TAB] Prednisone [predniSONE 10 mg 10 mg PO .TAPER #1 tab.ds.pk 08/15/20 Unknown Rx (6-Day Pack, 21 Tabs)] Amoxicillin [Amoxicillin TAB] 875 mg PO BID #14 tablet 09/04/20 Unknown Rx Ondansetron [Zofran Odt] 4 mg PO Q8HR #10 tab.rapdis 09/04/20 Unknown Rx predniSONE [Deltasone] 20 mg PO QDAY #5 tab 09/04/20 Unknown Rx Albuterol Mdi (or & Nicu Only) 2 puff IH QID PRN #1 inhalation 12/14/20 Unknown Rx [ProAir HFA Inhaler] Budesonide/Formoterol Fumarate 10.2 gm IH BID #1 hfa.aer.ad 12/14/20 Unknown Rx [Symbicort 160-4.5 Mcg Inhaler] Prednisone [predniSONE 5 mg (6-Day 5 mg PO .TAPER 1 Days #1 tab.ds.pk 12/14/20 Unknown Rx Pack, 21 Tabs)] ALBUTEROL NEB's [Proventil 0.083% 2.5 mg IH TID PRN #1 box 01/14/21 Unknown Rx NEBS] Albuterol Sulfate [Proair 90 mcg IH Q4H #1 aer.pow.ba 01/14/21 Unknown Rx Respiclick] Albuterol Mdi (or & Nicu Only) 2 puff IH Q6H PRN #8.5 gram 03/01/21 Unknown Rx [ProAir HFA Inhaler] Azithromycin [Zithromax Z-NILDA] 250 mg PO DAILY #6 tab 03/01/21 Unknown Rx Prednisone [predniSONE 10 mg 10 mg PO .TAPER #1 tab.ds.pk 03/01/21 Unknown Rx (6-Day Pack, 21 Tabs)] oxyCODONE /ACETAMINOPHEN [Percocet 1 tab PO Q4HR PRN #10 tab 03/01/21 Unknown Rx 5/325] ED Review of Systems ROS: Stated complaint: LOW OXYGEN Other details as noted in HPI Constitutional: denies: fever Eyes: denies: eye pain ENT: denies: throat pain Respiratory: cough, shortness of breath, SOB with exertion Cardiovascular: chest pain Endocrine: no symptoms reported Gastrointestinal: denies: abdominal pain Genitourinary: denies: dysuria Musculoskeletal: denies: back pain Neurological: denies: headache Physical Exam - Physical Exam Vital Signs: Vital Signs 09/21/21 23:49 Temperature 99.2 F Pulse Rate 120 H Respiratory 19 Rate Blood Pressure 108/62 O2 Sat by Pulse 92 Oximetry Physical Exam: GENERAL: The patient is well-developed well-nourished female sitting in chair not appearing to be in acute distress. [] HEENT: Normocephalic. Atraumatic. Extraocular motions are intact. Patient has moist mucous membranes. NECK: Supple. Trachea midline CHEST/LUNGS: Diffuse wheeze. There is no respiratory distress noted. HEART/CARDIOVASCULAR: Regular. There is no tachycardia. There is no gallop rub or murmur. ABDOMEN: Abdomen is soft, nontender. Patient has normal bowel sounds. There is no abdominal distention. SKIN: There is no rash. There is 1-2+ bilateral lower extremity pitting edema. There is no diaphoresis. NEURO: The patient is awake, alert, and oriented. The patient is cooperative. The patient has no focal neurologic deficits. The patient has normal speech. GCS 15 MUSCULOSKELETAL: There is no evidence of acute injury. ED Course Vital Signs 09/21/21 23:49 Temperature 99.2 F Pulse Rate 120 H Respiratory 19 Rate Blood Pressure 108/62 O2 Sat by Pulse 92 Oximetry ED Medical Decision Making - Lab Data Result diagrams: 09/22/21 01:14 09/22/21 01:14 - Medical Decision Making I discussed with the patient at length my concern for her epigastric tightness as well as is her other constellation of symptoms and my desire to admit her to the hospital for further observation. Patient verbalized understanding states she refuses an IV refusing EKG and does not wish to be admitted to the hospital. Patient verbalizes understanding of increased morbidity and/or mortality should she leave the hospital AGAINST MEDICAL ADVICE. I reminded the patient that she says she ran out of oxygen and she states she forgot she has a co ncentrator that just needs to be plugged into the wall. - Differential Diagnosis COPD exacerbation, Covid, CHF, ACS, GERD Critical care attestation.: If time is entered above; I have spent that time in minutes in the direct care of this critically ill patient, excluding procedure time. ED Disposition Clinical Impression: Shortness of breath, Dyspnea on exertion, Epigastric pain Disposition: LEFT AGAINST MEDICAL ADVICE Is pt being admited?: No Does the pt Need Aspirin: No Condition: Stable Instructions: Shortness of Breath, Adult, [id number] Time of Disposition: 02:54 (Patient leaving AMA) Heart Score - HEART Score History: Moderately suspicious EKG: Normal (Patient refused EKG) Age: 45-65 Risk factors: 1-2 risk factors Troponin: < normal limit (Patient refused labs) HEART Score: 3 - EKG Read Time Time EKG Completed: 00:00 EKG Read Time: 00:00
[2021-09-22 01:41] LABS: Basophils % (Auto) 0.8 % (0.0-1.8); Eosinophils # (Auto) 0.3 K/mm3 (0.0-0.4); Eosinophils % (Auto) 5.5 % (0.0-4.3); Hematocrit 36.4 % (30.3-42.9); Hemoglobin 11.4 gm/dl (10.1-14.3); Lymphocytes # (Auto) 1.3 K/mm3 (1.2-5.4); Lymphocytes % (Auto) 23.4 % (13.4-35.0); Mean Corpuscular HGB Conc 31 % (30-34); Mean Corpuscular Volume 91 fl (79-97); Monocytes # (Auto) 0.7 K/mm3 (0.0-0.8); Monocytes % (Auto) 12.7 % (0.0-7.3); Platelet Count 213 K/mm3 (140-440); Red Blood Count 4.01 M/mm3 (3.65-5.03); Red Cell Distribution Width 14.5 % (13.2-15.2)
[2021-09-22] MEDS ORDERED: methylPREDNISolone Sod Succinate 125 MG/2 ML INJ IM ONE (01:42)
--- NOTE | 2021-09-22 01:56 | XRay Report ---
CHEST 1 VIEW 09/22/2021 12:48 AM INDICATION / CLINICAL INFORMATION: Shortness of breath, cough, chest tightness. COMPARISON: 03/01/2021 FINDINGS: SUPPORT DEVICES: None. HEART / MEDIASTINUM: No significant abnormality. LUNGS / PLEURA: No significant pulmonary or pleural abnormality. No pneumothorax. ADDITIONAL FINDINGS: No significant additional findings. IMPRESSION: 1. No acute findings. Signer Name: Tyrell Echevarria MD Signed: 09/22/2021 1:52 AM Workstation Name: [id number]
[2021-09-22 02:05] LABS: Alanine Aminotransferase 12 units/L (7-56); Albumin 3.7 g/dL (3.9-5); BUN/Creatinine Ratio 30; Blood Urea Nitrogen 21 mg/dL (7-17); Calcium 8.7 mg/dL (8.4-10.2); Hemolysis Index 9
== END 2021-09-22 04:30 | disposition left against medical advice (07) ==
LOC: ED 22:02
DX: R06.02 Shortness of breath (principal); R06.00 Dyspnea, unspecified; R10.13 Epigastric pain; Z90.49 Acquired absence of other specified parts of digestive tract; J45.909 Unspecified asthma, uncomplicated; F17.200 Nicotine dependence, unspecified, uncomplicated
CPT/HCPCS: 36415; 71045; 80053; 82140; 82550; 82553; 83690; 83880; 84484; 85025; 87040; 94640; 94644; 99284

== ENCOUNTER 2021-09-22 15:28 | Emergency (ER) | payer MEDICAID ==
[2021-09-22 15:59] VITALS: BP 139/71
[2021-09-22] MEDS ORDERED: ALBUTEROL 2.5 MG/3 ML NEBU IH ONE (16:39)
[2021-09-22] MEDS ORDERED: IPRATROPIUM 0.02% NEBU 2.5 ML IH ONE (16:39)
[2021-09-22] MEDS ORDERED: FUROSEMIDE 20 MG TAB PO ONE (16:39)
[2021-09-22] MEDS ORDERED: predniSONE 20 MG TAB PO ONE (16:39)
[2021-09-22] MEDS ORDERED: DOXYCYCLINE 100 MG CAP PO ONE (16:41)
--- NOTE | 2021-09-22 16:46 | Emergency Department Report ---
ED General Adult HPI - General Chief complaint: Dyspnea/Respdistress Stated complaint: SHORTNESS OF BREATH PUI?: No Time Seen by Provider: 09/22/21 16:27 Source: patient, RN notes reviewed, old records reviewed Mode of arrival: Ambulatory Limitations: No Limitations - History of Present Illness Initial comments: The patient was evaluated in the emergency department for symptoms described in the history of present illness. He/she was evaluated in the context of the global COVID-19 pandemic, which necessitated consideration that the patient might be at risk for infection with the virus that causes COVID-19. Institutional protocols and algorithms that pertain to the evaluation of patients at risk for COVID-19 are in a state of rapid change based on information released by regulatory bodies including the CDC and federal and state organizations. These policies and algorithms were followed during the patient's care in the emergency department. Please note that these policies, procedures and recommendations changed on a rapid basis. The patient is a 56-year-old female with a history of tobacco use, COPD, on home oxygen, not COVID-19 vaccinated. She does not have a local trial justice. She presents to the ER with a complaint of painless shortness of breath, orthopnea. Patient denies travel, surgery, immobilization, leg pain and leg swelling. Patient reports that she has to sleep upright, or in 2-3 pillows The patient denies physical pain. She denies fever. She denies loss of taste and smell. The patient reports that she is currently on home oxygen which is paid for by Medicaid and by herself the patient reports that she is motivated to follow-up with an outpatient primary care doctor or trial justice. The patient also endorses a sensation of sleep which is not restful -: Gradual, week(s) Location: left, right, lower extremity Consistency: constant Improves with: rest Worsens with: movement - Related Data Previous Rx's Medication Instructions Recorded Last Taken Type Budesoni/Formotero 160-4.5(Nf) 2 puff IH BID #1 inha 01/05/14 Unknown Rx [Symbicort 160-4.5] Montelukast Sodium [Singulair] 10 mg PO DAILY #30 tablet 01/05/14 Unknown Rx Albuterol Mdi (or & Nicu Only) 2 puff IH QID PRN #1 inhalation 02/28/14 Unknown Rx [ProAir HFA Inhaler] Loratadine (Nf) [Claritin] 10 mg PO DAILY #30 tablet 02/28/14 Unknown Rx predniSONE [Deltasone] 50 mg PO QDAY #5 tab 02/28/14 Unknown Rx Albuterol Mdi (or & Nicu Only) 2 puff IH QID PRN #1 inhalation 11/23/16 Unknown Rx [Proair] Albuterol Mdi (or & Nicu Only) 2 puff IH QID PRN #8.5 gram 08/15/20 Unknown Rx [ProAir HFA Inhaler] Doxycycline Hyclate [Doxycycline 100 mg PO Q12HR 7 Days #14 tab 08/15/20 Unknown Rx Hyclate TAB] Prednisone [predniSONE 10 mg 10 mg PO .TAPER #1 tab.ds.pk 08/15/20 Unknown Rx (6-Day Pack, 21 Tabs)] predniSONE [Deltasone] 20 mg PO QDAY #5 tab 09/04/20 Unknown Rx Albuterol Mdi (or & Nicu Only) 2 puff IH QID PRN #1 inhalation 12/14/20 Unknown Rx [ProAir HFA Inhaler] Budesonide/Formoterol Fumarate 10.2 gm IH BID #1 hfa.aer.ad 12/14/20 Unknown Rx [Symbicort 160-4.5 Mcg Inhaler] Prednisone [predniSONE 5 mg (6-Day 5 mg PO .TAPER 1 Days #1 tab.ds.pk 12/14/20 Unknown Rx Pack, 21 Tabs)] ALBUTEROL NEB's [Proventil 0.083% 2.5 mg IH TID PRN #1 box 01/14/21 Unknown Rx NEBS] Albuterol Sulfate [Proair 90 mcg IH Q4H #1 aer.pow.ba 01/14/21 Unknown Rx Respiclick] Albuterol Mdi (or & Nicu Only) 2 puff IH Q6H PRN #8.5 gram 03/01/21 Unknown Rx [ProAir HFA Inhaler] Prednisone [predniSONE 10 mg 10 mg PO .TAPER #1 tab.ds.pk 03/01/21 Unknown Rx (6-Day Pack, 21 Tabs)] Albuterol Sulfate [Proair 90 mcg IH Q4HR PRN #2 aer.pow.ba 09/22/21 Unknown Rx Respiclick] DOXYCYCLINE Hyclate [Vibramycin] 100 mg PO Q12HR #10 capsule 09/22/21 Unknown Rx Furosemide [Lasix] 20 mg PO QDAY #30 tablet 09/22/21 Unknown Rx Ipratropium (Nf) [Atrovent] 2 puff IH Q6HR PRN #1 inha 09/22/21 Unknown Rx Nicotine Polacrilex [Nicotine Gum] 4 mg BC PRN #1 pack 09/22/21 Unknown Rx Tiotropium [place] [Spiriva] 1 puff IH QDAY #1 inh 09/22/21 Unknown Rx predniSONE [Deltasone] 40 mg PO QDAY #8 tab 09/22/21 Unknown Rx Allergies Allergy/AdvReac Type Severity Reaction Status Date / Time codeine Allergy Swelling Verified 09/21/21 23:53 levofloxacin Allergy Swelling Verified 09/21/21 23:53 prednisone Allergy Shortness Verified 09/22/21 15:59 of Breath ED Review of Systems ROS: Stated complaint: SHORTNESS OF BREATH Other details as noted in HPI Constitutional: malaise. denies: fever Eyes: denies: eye discharge ENT: congestion Respiratory: cough, shortness of breath, SOB with exertion, SOB at rest, wheezing Cardiovascular: orthopnea, edema (Bilateral lower extremity edema). denies: chest pain Musculoskeletal: arthralgia. denies: myalgia Neurological: denies: headache ED Past Medical Hx - Past Medical History Hx Psychiatric Treatment: No Hx Asthma: Yes Hx COPD: Yes (3 L nasal cannula home O2) - Surgical History Hx Cholecystectomy: Yes Additional Surgical History: tubal ligation. tosillectomy - Social History Smoking Status: Current Every Day Smoker Substance Use Type: None (Denies illicit drug) - Medications Home Medications: Home Medications Medication Instructions Recorded Confirmed Last Taken Type Budesoni/Formotero 160-4.5(Nf) 2 puff IH BID #1 inha 01/05/14 Unknown Rx [Symbicort 160-4.5] Montelukast Sodium [Singulair] 10 mg PO DAILY #30 tablet 01/05/14 Unknown Rx Albuterol Mdi (or & Nicu Only) 2 puff IH QID PRN #1 inhalation 02/28/14 Unknown Rx [ProAir HFA Inhaler] Loratadine (Nf) [Claritin] 10 mg PO DAILY #30 tablet 02/28/14 Unknown Rx predniSONE [Deltasone] 50 mg PO QDAY #5 tab 02/28/14 Unknown Rx Albuterol Mdi (or & Nicu Only) 2 puff IH QID PRN #1 inhalation 11/23/16 Unknown Rx [Proair] Albuterol Mdi (or & Nicu Only) 2 puff IH QID PRN #8.5 gram 08/15/20 Unknown Rx [ProAir HFA Inhaler] Doxycycline Hyclate [Doxycycline 100 mg PO Q12HR 7 Days #14 tab 08/15/20 Unknown Rx Hyclate TAB] Prednisone [predniSONE 10 mg 10 mg PO .TAPER #1 tab.ds.pk 08/15/20 Unknown Rx (6-Day Pack, 21 Tabs)] predniSONE [Deltasone] 20 mg PO QDAY #5 tab 09/04/20 Unknown Rx Albuterol Mdi (or & Nicu Only) 2 puff IH QID PRN #1 inhalation 12/14/20 Unknown Rx [ProAir HFA Inhaler] Budesonide/Formoterol Fumarate 10.2 gm IH BID #1 hfa.aer.ad 12/14/20 Unknown Rx [Symbicort 160-4.5 Mcg Inhaler] Prednisone [predniSONE 5 mg (6-Day 5 mg PO .TAPER 1 Days #1 tab.ds.pk 12/14/20 Unknown Rx Pack, 21 Tabs)] ALBUTEROL NEB's [Proventil 0.083% 2.5 mg IH TID PRN #1 box 01/14/21 Unknown Rx NEBS] Albuterol Sulfate [Proair 90 mcg IH Q4H #1 aer.pow.ba 01/14/21 Unknown Rx Respiclick] Albuterol Mdi (or & Nicu Only) 2 puff IH Q6H PRN #8.5 gram 03/01/21 Unknown Rx [ProAir HFA Inhaler] Prednisone [predniSONE 10 mg 10 mg PO .TAPER #1 tab.ds.pk 03/01/21 Unknown Rx (6-Day Pack, 21 Tabs)] Albuterol Sulfate [Proair 90 mcg IH Q4HR PRN #2 aer.pow.ba 09/22/21 Unknown Rx Respiclick] DOXYCYCLINE Hyclate [Vibramycin] 100 mg PO Q12HR #10 capsule 09/22/21 Unknown Rx Furosemide [Lasix] 20 mg PO QDAY #30 tablet 09/22/21 Unknown Rx Ipratropium (Nf) [Atrovent] 2 puff IH Q6HR PRN #1 inha 09/22/21 Unknown Rx Nicotine Polacrilex [Nicotine Gum] 4 mg BC PRN #1 pack 09/22/21 Unknown Rx Tiotropium [place] [Spiriva] 1 puff IH QDAY #1 inh 09/22/21 Unknown Rx predniSONE [Deltasone] 40 mg PO QDAY #8 tab 09/22/21 Unknown Rx ED Physical Exam - General Limitations: No Limitations General appearance: alert, in no apparent distress, obese - Head Head exam: Present: atraumatic, normocephalic - Eye Eye exam: Present: normal appearance, EOMI. Absent: nystagmus - ENT ENT exam: Present: normal exam, normal orophraynx, mucous membranes moist, normal external ear exam - Neck Neck exam: Present: normal inspection, full ROM. Absent: tenderness, meningismus - Respiratory Respiratory exam: Present: wheezes, rhonchi. Absent: respiratory distress, rales, stridor - Cardiovascular Cardiovascular Exam: Present: regular rate, normal rhythm, normal heart sounds. Absent: bradycardia, tachycardia, irregular rhythm, systolic murmur, diastolic murmur, rubs, gallop - GI/Abdominal GI/Abdominal exam: Present: soft. Absent: distended, tenderness, guarding, rebound, rigid, pulsatile mass - Extremities Exam Extremities exam: Present: normal inspection, full ROM, pedal edema (2+ edema in the bilateral lower extremity), other (2+ pulses noted in the bilateral upper and lower extremities. There is no palpable cord. negative Homans sign. Muscular compartments are soft. The pelvis is stable.). Absent: calf tenderness - Back Exam Back exam: Present: normal inspection. Absent: tenderness, CVA tenderness (R), CVA tenderness (L), paraspinal tenderness, vertebral tenderness - Neurological Exam Neurological exam: Present: alert, oriented X3, normal gait, other (No facial droop. Tongue midline. Extraocular movements intact bilaterally. Facial sensation intact to light touch in V1, V2, V3 distribution bilaterally. 5 and a 5 strength in 4 extremities. Sensation intact to light touch in 4 extremities.). Absent: motor sensory deficit - Psychiatric Psychiatric exam: Present: normal affect, normal mood - Skin Skin exam: Present: warm, dry, intact, normal color. Absent: rash ED Course Vital Signs 09/22/21 15:57 Temperature 98.3 F Pulse Rate 95 H Respiratory 22 Rate Blood Pressure 139/71 O2 Sat by Pulse 97 Oximetry - Reevaluation(s) Reevaluation #1: 09/22/21 16:47 Differential diagnosis, including but not limited to: COPD exacerbation, obstructive sleep apnea, COVID-19, dependent edema, congestive heart failure Assessment and plan: 56-year-old female, who was afebrile, with reassuring vital signs, saturating at 97% on 3 L of home oxygen, which she has, presenting to the ER today with a complaint of painless shortness of breath, orthopnea, cough, wheezing, and lower extremity swelling. X-ray shows no acute findings. Recent laboratory studies unremarkable. Patient speaking on her cell phone when I enter the room, and in no acute distress. She has wheezes bilaterally. This is most likely natural history of COPD, obstructive sleep apnea, and probable right-sided cardiac dysfunction. I offered patient admission for supportive care, and expedient diagnostic work- up. However, the patient is concerned about the risks of hospitalization, including COVID-19, as well as diarrhea, DVT, and prefers to follow-up as an outpatient. Risks, benefits and alternatives of admission versus close outpatient follow-up are discussed with the patient, and through shared decision-making, we agreed to discharge her as an outpatient. I will treat her here with albuterol, Atrovent, steroids, Lasix and doxycycline. Upon review of prior charts, she has received prednisone without difficulty. Patient will need to follow-up with her primary care doctor or trial justice for medical optimization as an outpatient. She is also encouraged to complete her COVID-19 vaccination series. She can al so start nicotine gum for tobacco cessation. The patient is not acutely or emergently decompensated at this point in time where admission is absolutely recommended. 09/22/21 17:49 Patient reassessed. Feels improved. No active wheezing. Endorses readiness for discharge. ED Medical Decision Making - Lab Data Vital Signs 09/22/21 15:57 Temperature 98.3 F Pulse Rate 95 H Respiratory 22 Rate Blood Pressure 139/71 O2 Sat by Pulse 97 Oximetry - EKG Data -: EKG Interpreted by Me EKG shows normal: sinus rhythm Rate: normal - EKG Data 09/22/21 16:50 The EKG is interpreted at 16: 43 Sinus rhythm, rate 95 bpm. Normal axis, QTC 4 4 4 ms, motion artifact. Abnormal EKG. Not a STEMI - Radiology Data Radiology results: pending, report reviewed, image reviewed CHEST 1 VIEW 09/22/2021 12:48 AM INDICATION / CLINICAL INFORMATION: Shortness of breath, cough, chest tightness. COMPARISON: 03/01/2021 FINDINGS: SUPPORT DEVICES: None. HEART / MEDIASTINUM: No significant abnormality. LUNGS / PLEURA: No significant pulmonary or pleural abnormality. No pneumothorax. ADDITIONAL FINDINGS: No significant additional findings. IMPRESSION: 1. No acute findings. Signer Name: Tyrell Echevarria MD Signed: 09/22/2021 12:52 AM Workstation Name: [id number] Critical care attestation.: If time is entered above; I have spent that time in minutes in the direct care of this critically ill patient, excluding procedure time. ED Disposition Clinical Impression: Acute exacerbation of chronic obstructive pulmonary disease, Encounter for tobacco use cessation counseling, COVID-19 vaccination not done, Swelling of lower extremity Disposition: HOME / SELF CARE / HOMELESS Is pt being admited?: No Does the pt Need Aspirin: No Condition: Good Instructions: Heart Failure, Self Care, [id number], COPD and Physical Activity, Chronic Obstructive Pulmonary Disease (ED) Additional Instructions: As we discussed, symptoms likely coming from a combination of COPD/emphysema, obstructive sleep apnea, and body mass index of 37.9, likely compounded by tobacco use and cigarette use. Strongly recommend the patient discontinue tobacco and cigarette use. Smoke products consumption is a risk factor for cancer, disability, paralysis, and loss of quality of life. Use the nicotine gum to assist with tobacco cessation. Recommend aggressive weight loss, physical activity as tolerated, consumption of a low-salt diet, continued home oxygen, and close outpatient follow-up with a primary care doctor, trial justice or driller brake lining. Patient will likely need outpatient sleep study to rule in or rule out obstructive sleep apnea, this can be coordinated by a trial justice such as Dr. Christian. Recommend follow-up with a trial justice within the next 7 to 10 days. Complications of COPD, emphysema and obstructive sleep apnea include right-sided heart failure, therefore, patient should follow-up with the driller brake lining, such as Dr George, within the next 7 to 10 days. We also recommend that patient complete outpatient COVID-19 vaccination series. Patient may also purchase compression stockings for her lower extremity swelling. We also recommend follow-up with a primary care doctor, such as Dr. Delaney, within the next 2 to 3 weeks. Please return to the emergency room right away with new pain, worsened pain, migration of pain, projectile vomiting, change in mental status, confusion, inability tolerate liquid feeds, new, worsened or different symptoms not present on the initial emergency room evaluation Prescriptions: Ipratropium (Nf) [Atrovent] 2 puff IH Q6HR PRN #1 inha PRN Reason: Wheezing predniSONE [Deltasone] 40 mg PO QDAY #8 tab Furosemide [Lasix] 20 mg PO QDAY #30 tablet Nicotine Polacrilex [Nicotine Gum] 4 mg BC PRN #1 pack Albuterol Sulfate [Proair Respiclick] 90 mcg IH Q4HR PRN #2 aer.pow.ba PRN Reason: Wheezing Tiotropium [place] [Spiriva] 1 puff IH QDAY #1 inh DOXYCYCLINE Hyclate [Vibramycin] 100 mg PO Q12HR #10 capsule Referrals: AGUS CHRISTIAN MD [Staff Physician] - 3-5 Days SILVIA ROBLERO MD [Staff Physician] - 3-5 Days BRII DELANEY MD [Staff Physician] - 3-5 Days
--- NOTE | 2021-09-24 09:08 | Electrocardiograph Report ---
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
== END 2021-09-22 18:20 | disposition home or self-care (01) ==
LOC: ED 15:28
DX: J44.1 Chronic obstructive pulmonary disease with (acute) exacerbation (principal); M79.89 Other specified soft tissue disorders; F17.200 Nicotine dependence, unspecified, uncomplicated
CPT/HCPCS: 93005; 93010; 94640; 94644; 99282

== ENCOUNTER 2021-11-11 01:37 | Emergency (ER) | payer MEDICAID ==
--- NOTE | 2021-11-11 04:47 | Emergency Department Report ---
<RIK GATES - Last Filed: 11/11/21 07:15> ED Shortness of Breath HPI - General Chief Complaint: Dyspnea/Respdistress Stated Complaint: VEE Time Seen by Provider: 11/11/21 04:29 Source: patient, EMS Mode of arrival: Stretcher Limitations: No Limitations - History of Present Illness Initial Comments: This patient presents to the emergency department for evaluation of wheezing. She states that she is on home O2 and has not been able to obtain oxygen. She states that she has a productive cough. She denies fever chills nausea or vomiting. The patient states that she occasionally has pain in the epigastric area which is apparently chronic. The patient is noncompliant with her follow- up with her primary care physician. The patient cannot take steroids because it causes an increase in wheezing. -: Gradual, days(s) Time: 03:00 Improves With: rest Worsens With: exertion Known History Of: COPD - Related Data Previous Rx's Medication Instructions Recorded Last Taken Type Budesoni/Formotero 160-4.5(Nf) 2 puff IH BID #1 inha 01/05/14 Unknown Rx [Symbicort 160-4.5] Montelukast Sodium [Singulair] 10 mg PO DAILY #30 tablet 01/05/14 Unknown Rx Albuterol Mdi (or & Nicu Only) 2 puff IH QID PRN #1 inhalation 02/28/14 Unknown Rx [ProAir HFA Inhaler] Loratadine (Nf) [Claritin] 10 mg PO DAILY #30 tablet 02/28/14 Unknown Rx predniSONE [Deltasone] 50 mg PO QDAY #5 tab 02/28/14 Unknown Rx Albuterol Mdi (or & Nicu Only) 2 puff IH QID PRN #1 inhalation 11/23/16 Unknown Rx [Proair] Albuterol Mdi (or & Nicu Only) 2 puff IH QID PRN #8.5 gram 08/15/20 Unknown Rx [ProAir HFA Inhaler] Doxycycline Hyclate [Doxycycline 100 mg PO Q12HR 7 Days #14 tab 08/15/20 Unknown Rx Hyclate TAB] Prednisone [predniSONE 10 mg 10 mg PO .TAPER #1 tab.ds.pk 08/15/20 Unknown Rx (6-Day Pack, 21 Tabs)] predniSONE [Deltasone] 20 mg PO QDAY #5 tab 09/04/20 Unknown Rx Albuterol Mdi (or & Nicu Only) 2 puff IH QID PRN #1 inhalation 12/14/20 Unknown Rx [ProAir HFA Inhaler] Budesonide/Formoterol Fumarate 10.2 gm IH BID #1 hfa.aer.ad 12/14/20 Unknown Rx [Symbicort 160-4.5 Mcg Inhaler] Prednisone [predniSONE 5 mg (6-Day 5 mg PO .TAPER 1 Days #1 tab.ds.pk 12/14/20 Unknown Rx Pack, 21 Tabs)] ALBUTEROL NEB's [Proventil 0.083% 2.5 mg IH TID PRN #1 box 01/14/21 Unknown Rx NEBS] Albuterol Sulfate [Proair 90 mcg IH Q4H #1 aer.pow.ba 01/14/21 Unknown Rx Respiclick] Albuterol Mdi (or & Nicu Only) 2 puff IH Q6H PRN #8.5 gram 03/01/21 Unknown Rx [ProAir HFA Inhaler] Prednisone [predniSONE 10 mg 10 mg PO .TAPER #1 tab.ds.pk 03/01/21 Unknown Rx (6-Day Pack, 21 Tabs)] Albuterol Sulfate [Proair 90 mcg IH Q4HR PRN #2 aer.pow.ba 09/22/21 Unknown Rx Respiclick] DOXYCYCLINE Hyclate [Vibramycin] 100 mg PO Q12HR #10 capsule 09/22/21 Unknown Rx Furosemide [Lasix] 20 mg PO QDAY #30 tablet 09/22/21 Unknown Rx Ipratropium (Nf) [Atrovent] 2 puff IH Q6HR PRN #1 inha 09/22/21 Unknown Rx Nicotine Polacrilex [Nicotine Gum] 4 mg BC PRN #1 pack 09/22/21 Unknown Rx Tiotropium [place] [Spiriva] 1 puff IH QDAY #1 inh 09/22/21 Unknown Rx predniSONE [Deltasone] 40 mg PO QDAY #8 tab 09/22/21 Unknown Rx Allergies Allergy/AdvReac Type Severity Reaction Status Date / Time codeine Allergy Swelling Verified 11/11/21 01:40 levofloxacin Allergy Swelling Verified 11/11/21 01:40 prednisone Allergy Shortness Verified 11/11/21 01:40 of Breath ED Review of Systems Constitutional: denies: chills, fever Respiratory: cough, shortness of breath, wheezing Cardiovascular: denies: chest pain, palpitations Endocrine: no symptoms reported Gastrointestinal: denies: abdominal pain, nausea, diarrhea Genitourinary: denies: urgency, dysuria, discharge Musculoskeletal: denies: back pain, joint swelling, arthralgia Skin: denies: rash, lesions Neurological: denies: headache, weakness, paresthesias ED Past Medical Hx - Past Medical History Previous Medical History?: Yes Hx Psychiatric Treatment: No Hx Asthma: Yes Hx COPD: Yes (3 L nasal cannula home O2) - Surgical History Past Surgical History?: Yes Hx Cholecystectomy: Yes Additional Surgical History: tubal ligation. tosillectomy - Social History Smoking Status: Current Every Day Smoker Substance Use Type: None (Denies illicit drug) - Medications Home Medications: Home Medications Medication Instructions Recorded Confirmed Last Taken Type Budesoni/Formotero 160-4.5(Nf) 2 puff IH BID #1 inha 01/05/14 Unknown Rx [Symbicort 160-4.5] Montelukast Sodium [Singulair] 10 mg PO DAILY #30 tablet 01/05/14 Unknown Rx Albuterol Mdi (or & Nicu Only) 2 puff IH QID PRN #1 inhalation 02/28/14 Unknown Rx [ProAir HFA Inhaler] Loratadine (Nf) [Claritin] 10 mg PO DAILY #30 tablet 02/28/14 Unknown Rx predniSONE [Deltasone] 50 mg PO QDAY #5 tab 02/28/14 Unknown Rx Albuterol Mdi (or & Nicu Only) 2 puff IH QID PRN #1 inhalation 11/23/16 Unknown Rx [Proair] Albuterol Mdi (or & Nicu Only) 2 puff IH QID PRN #8.5 gram 08/15/20 Unknown Rx [ProAir HFA Inhaler] Doxycycline Hyclate [Doxycycline 100 mg PO Q12HR 7 Days #14 tab 08/15/20 Unknown Rx Hyclate TAB] Prednisone [predniSONE 10 mg 10 mg PO .TAPER #1 tab.ds.pk 08/15/20 Unknown Rx (6-Day Pack, 21 Tabs)] predniSONE [Deltasone] 20 mg PO QDAY #5 tab 09/04/20 Unknown Rx Albuterol Mdi (or & Nicu Only) 2 puff IH QID PRN #1 inhalation 12/14/20 Unknown Rx [ProAir HFA Inhaler] Budesonide/Formoterol Fumarate 10.2 gm IH BID #1 hfa.aer.ad 12/14/20 Unknown Rx [Symbicort 160-4.5 Mcg Inhaler] Prednisone [predniSONE 5 mg (6-Day 5 mg PO .TAPER 1 Days #1 tab.ds.pk 12/14/20 Unknown Rx Pack, 21 Tabs)] ALBUTEROL NEB's [Proventil 0.083% 2.5 mg IH TID PRN #1 box 01/14/21 Unknown Rx NEBS] Albuterol Sulfate [Proair 90 mcg IH Q4H #1 aer.pow.ba 01/14/21 Unknown Rx Respiclick] Albuterol Mdi (or & Nicu Only) 2 puff IH Q6H PRN #8.5 gram 03/01/21 Unknown Rx [ProAir HFA Inhaler] Prednisone [predniSONE 10 mg 10 mg PO .TAPER #1 tab.ds.pk 03/01/21 Unknown Rx (6-Day Pack, 21 Tabs)] Albuterol Sulfate [Proair 90 mcg IH Q4HR PRN #2 aer.pow.ba 09/22/21 Unknown Rx Respiclick] DOXYCYCLINE Hyclate [Vibramycin] 100 mg PO Q12HR #10 capsule 09/22/21 Unknown Rx Furosemide [Lasix] 20 mg PO QDAY #30 tablet 09/22/21 Unknown Rx Ipratropium (Nf) [Atrovent] 2 puff IH Q6HR PRN #1 inha 09/22/21 Unknown Rx Nicotine Polacrilex [Nicotine Gum] 4 mg BC PRN #1 pack 09/22/21 Unknown Rx Tiotropium [place] [Spiriva] 1 puff IH QDAY #1 inh 09/22/21 Unknown Rx predniSONE [Deltasone] 40 mg PO QDAY #8 tab 09/22/21 Unknown Rx ED Physical Exam - General Limitations: No Limitations General appearance: alert, in no apparent distress - Head Head exam: Present: atraumatic, normocephalic - ENT ENT exam: Present: mucous membranes moist - Neck Neck exam: Present: normal inspection - Respiratory Respiratory exam: Present: wheezes (Scattered throughout the lung love) - GI/Abdominal GI/Abdominal exam: Present: soft. Absent: distended, tenderness - Rectal Rectal exam: Present: deferred - Extremities Exam Extremities exam: Present: pedal edema (Bilaterally) - Back Exam Back exam: Present: normal inspection. Absent: CVA tenderness (R), CVA tenderness (L) - Neurological Exam Neurological exam: Present: alert, oriented X3 - Psychiatric Psychiatric exam: Present: normal affect, normal mood - Skin Skin exam: Present: warm, dry ED Medical Decision Making - Medical Decision Making On evaluation the patient was noted to have expiratory wheezing. She was given a breathing treatment and on reevaluation is noted to have improved. The patient was advised that she will be discharged home after evaluation by case management. She however pointed out that she cannot get oxygen on till Saturday obviously an attempt to stay in the hospital. At this point I see no obvious reason to admit this patient to the hospital ED Disposition Clinical Impression: COPD exacerbation, Supplemental oxygen dependent Disposition: 30 STILL A PATIENT Is pt being admited?: No Does the pt Need Aspirin: No Condition: Stable Instructions: Chronic Obstructive Pulmonary Disease, Chronic Obstructive Pulmonary Disease (ED) Referrals: BRII CORDON MD [Primary Care Provider] - 3-5 Days <AWAIS OCASIO - Last Filed: 11/11/21 17:15> ED Review of Systems ROS: Stated complaint: VEE Other details as noted in HPI ED Course Vital Signs 11/11/21 11/11/21 11/11/21 01:38 03:20 04:00 Temperature 98.0 F Pulse Rate 110 H 98 H 97 H Pulse Rate [ Bilateral Throughout] Respiratory 18 13 22 Rate Respiratory Rate [Bilateral Throughout] Blood Pressure 124/67 Blood Pressure 138/86 [Left] O2 Sat by Pulse 98 96 96 Oximetry 11/11/21 11/11/21 11/11/21 05:00 06:00 07:00 Temperature Pulse Rate 99 H 102 H 98 H Pulse Rate [ 103 H Bilateral Throughout] Respiratory 25 H 22 25 H Rate Respiratory 16 Rate [Bilateral Throughout] Blood Pressure 149/124 93/63 93/63 Blood Pressure [Left] O2 Sat by Pulse 99 99 96 Oximetry 11/11/21 11/11/21 11/11/21 08:00 09:00 09:23 Temperature Pulse Rate 107 H 96 H Pulse Rate [ Bilateral Throughout] Respiratory 23 22 26 H Rate Respiratory Rate [Bilateral Throughout] Blood Pressure 105/37 108/46 Blood Pressure [Left] O2 Sat by Pulse 61 L 96 94 Oximetry 11/11/21 11/11/21 11/11/21 10:00 11:00 12:00 Temperature Pulse Rate 89 93 H 91 H Pulse Rate [ Bilateral Throughout] Respiratory 22 25 H 21 Rate Respiratory Rate [Bilateral Throughout] Blood Pressure 108/46 108/46 129/71 Blood Pressure [Left] O2 Sat by Pulse 98 99 Oximetry 11/11/21 11/11/21 13:00 13:35 Temperature Pulse Rate 95 H Pulse Rate [ Bilateral Throughout] Respiratory 25 H Rate Respiratory Rate [Bilateral Throughout] Blood Pressure 129/71 Blood Pressure [Left] O2 Sat by Pulse 94 Oximetry - Reevaluation(s) Reevaluation #1: 11/11/21 16:03 I evaluated patient. She is bent over stating that she is having an asthma attack. She appears in mild distress. I ordered nebulizer treatment. Critical care attestation.: If time is entered above; I have spent that time in minutes in the direct care of this critically ill patient, excluding procedure time. ED Disposition Is pt being admited?: No Does the pt Need Aspirin: No
[2021-11-11] MEDS ORDERED: IPRATROPIUM/ALBUTEROL SULFATE 3 ML AMPUL.NEB IH ONE (04:52)
--- NOTE | 2021-11-11 05:43 | XRay Report ---
CHEST 1 VIEW INDICATION / CLINICAL INFORMATION: dyspnea. COMPARISON: 09/22/2021 FINDINGS: SUPPORT DEVICES: None. HEART / MEDIASTINUM: No significant abnormality. LUNGS / PLEURA: No significant pulmonary or pleural abnormality. No pneumothorax. ADDITIONAL FINDINGS: No significant additional findings. IMPRESSION: 1. No acute findings. No interval change. Signer Name: Shanthi Burt MD Signed: 11/11/2021 5:38 AM Workstation Name: [id number]
[2021-11-11] MEDS ORDERED: ALBUTEROL 2.5 MG/3 ML NEBU IH ONE (16:02)
[2021-11-11] MEDS ORDERED: IPRATROPIUM 0.02% NEBU 2.5 ML IH ONE (16:02)
[2021-11-12 11:08] VITALS: BP 140/78
== END 2021-11-12 11:05 | disposition home or self-care (01) ==
LOC: ED 01:37
DX: J44.1 Chronic obstructive pulmonary disease with (acute) exacerbation (principal); Z99.81 Dependence on supplemental oxygen; F17.200 Nicotine dependence, unspecified, uncomplicated; Z88.5 Allergy status to narcotic agent; J45.909 Unspecified asthma, uncomplicated
CPT/HCPCS: 71045; 94640; 94644; 99284

== ENCOUNTER 2021-12-26 01:39 | Emergency (ER) | payer MEDICAID ==
[2021-12-26] MEDS ORDERED: IPRATROPIUM/ALBUTEROL SULFATE 3 ML AMPUL.NEB IH ONE (02:03)
--- NOTE | 2021-12-26 02:50 | XRay Report ---
CHEST 1 VIEW INDICATION / CLINICAL INFORMATION: Shortness of breath. COMPARISON: Chest x-ray 11/11/2021 FINDINGS: SUPPORT DEVICES: None. HEART / MEDIASTINUM: No significant abnormality. LUNGS / PLEURA: No significant pulmonary or pleural abnormality. BONES: No significant osseous abnormality. ADDITIONAL FINDINGS: No significant additional findings. IMPRESSION: 1. No active cardiopulmonary disease. Signer Name: Yosi Low II, MD Signed: 12/26/2021 2:46 AM Workstation Name: [id number]
--- NOTE | 2021-12-26 02:55 | XRay Report ---
RIGHT FOREARM 2 VIEW(S) INDICATION / CLINICAL INFORMATION: Fall COMPARISON: None available. FINDINGS: BONES / JOINT(S): No acute fracture or subluxation. No significant arthritis. SOFT TISSUES: No significant abnormality. ADDITIONAL FINDINGS: None. IMPRESSION: 1. No acute findings. No significant abnormality. Signer Name: Yosi Low II, MD Signed: 12/26/2021 2:51 AM Workstation Name: [id number]
[2021-12-26 02:56] LABS: Basophils # (Auto) 0.1 K/mm3 (0.0-0.1); Basophils % (Auto) 0.7 % (0.0-1.8); Eosinophils # (Auto) 0.1 K/mm3 (0.0-0.4); Eosinophils % (Auto) 1.4 % (0.0-4.3); Lymphocytes # (Auto) 1.8 K/mm3 (1.2-5.4); Lymphocytes % (Auto) 23.7 % (13.4-35.0); Mean Corpuscular HGB Conc 31 % (30-34); Mean Corpuscular Volume 87 fl (79-97); Monocytes # (Auto) 0.8 K/mm3 (0.0-0.8); Monocytes % (Auto) 10.6 % (0.0-7.3); Platelet Count 222 K/mm3 (140-440); Red Blood Count 5.24 M/mm3 (3.65-5.03); Red Cell Distribution Width 16.9 % (13.2-15.2)
[2021-12-26 03:01] LABS: Hematocrit 45.4 % (30.3-42.9); Hemoglobin 14.1 gm/dl (10.1-14.3)
--- NOTE | 2021-12-26 03:02 | XRay Report ---
RIGHT TIBIA-FIBULA 2 VIEW(S) INDICATION / CLINICAL INFORMATION: Follow-up no other history available. COMPARISON: None available. FINDINGS: BONES / JOINT(S): No acute fracture or subluxation. No significant arthritis. SOFT TISSUES: No significant abnormality. ADDITIONAL FINDINGS: None. IMPRESSION: 1. Provided the above clinical history, no meaningful abnormality is demonstrated. Signer Name: Yosi Low II, MD Signed: 12/26/2021 2:57 AM Workstation Name: [id number]
[2021-12-26 03:09] LABS: Calcium 8.3 mg/dL (8.4-10.2)
--- NOTE | 2021-12-26 05:12 | Emergency Department Report ---
ED Shortness of Breath HPI - General Chief Complaint: Dyspnea/Respdistress Stated Complaint: VEE Time Seen by Provider: 12/26/21 01:58 Source: EMS Mode of arrival: Stretcher Limitations: No Limitations - History of Present Illness Initial Comments: Patient is a 56-year-old female with history of COPD brought in by EMS with complaint of shortness of breath. She was given albuterol nebulization by EMS prior to arrival with moderate improvement. States she is currently out of her albuterol which is scheduled to arrive in a few days. Denies fever or chills. MD Complaint: shortness of breath -: days(s) - Related Data Previous Rx's Medication Instructions Recorded Last Taken Type Budesoni/Formotero 160-4.5(Nf) 2 puff IH BID #1 inha 01/05/14 Unknown Rx [Symbicort 160-4.5] Montelukast Sodium [Singulair] 10 mg PO DAILY #30 tablet 01/05/14 Unknown Rx Albuterol Mdi (or & Nicu Only) 2 puff IH QID PRN #1 inhalation 02/28/14 Unknown Rx [ProAir HFA Inhaler] Loratadine (Nf) [Claritin] 10 mg PO DAILY #30 tablet 02/28/14 Unknown Rx predniSONE [Deltasone] 50 mg PO QDAY #5 tab 02/28/14 Unknown Rx Albuterol Mdi (or & Nicu Only) 2 puff IH QID PRN #1 inhalation 11/23/16 Unknown Rx [Proair] Albuterol Mdi (or & Nicu Only) 2 puff IH QID PRN #8.5 gram 08/15/20 Unknown Rx [ProAir HFA Inhaler] Doxycycline Hyclate [Doxycycline 100 mg PO Q12HR 7 Days #14 tab 08/15/20 Unknown Rx Hyclate TAB] Prednisone [predniSONE 10 mg 10 mg PO .TAPER #1 tab.ds.pk 08/15/20 Unknown Rx (6-Day Pack, 21 Tabs)] predniSONE [Deltasone] 20 mg PO QDAY #5 tab 09/04/20 Unknown Rx Albuterol Mdi (or & Nicu Only) 2 puff IH QID PRN #1 inhalation 12/14/20 Unknown Rx [ProAir HFA Inhaler] Budesonide/Formoterol Fumarate 10.2 gm IH BID #1 hfa.aer.ad 12/14/20 Unknown Rx [Symbicort 160-4.5 Mcg Inhaler] Prednisone [predniSONE 5 mg (6-Day 5 mg PO .TAPER 1 Days #1 tab.ds.pk 12/14/20 Unknown Rx Pack, 21 Tabs)] ALBUTEROL NEB's [Proventil 0.083% 2.5 mg IH TID PRN #1 box 01/14/21 Unknown Rx NEBS] Albuterol Sulfate [Proair 90 mcg IH Q4H #1 aer.pow.ba 01/14/21 Unknown Rx Respiclick] Albuterol Mdi (or & Nicu Only) 2 puff IH Q6H PRN #8.5 gram 03/01/21 Unknown Rx [ProAir HFA Inhaler] Prednisone [predniSONE 10 mg 10 mg PO .TAPER #1 tab.ds.pk 03/01/21 Unknown Rx (6-Day Pack, 21 Tabs)] Albuterol Sulfate [Proair 90 mcg IH Q4HR PRN #2 aer.pow.ba 09/22/21 Unknown Rx Respiclick] DOXYCYCLINE Hyclate [Vibramycin] 100 mg PO Q12HR #10 capsule 09/22/21 Unknown Rx Furosemide [Lasix] 20 mg PO QDAY #30 tablet 09/22/21 Unknown Rx Ipratropium (Nf) [Atrovent] 2 puff IH Q6HR PRN #1 inha 09/22/21 Unknown Rx Nicotine Polacrilex [Nicotine Gum] 4 mg BC PRN #1 pack 09/22/21 Unknown Rx Tiotropium [place] [Spiriva] 1 puff IH QDAY #1 inh 09/22/21 Unknown Rx predniSONE [Deltasone] 40 mg PO QDAY #8 tab 09/22/21 Unknown Rx Allergies Allergy/AdvReac Type Severity Reaction Status Date / Time codeine Allergy Swelling Verified 11/11/21 01:40 levofloxacin Allergy Swelling Verified 11/11/21 01:40 prednisone Allergy Shortness Verified 11/11/21 01:40 of Breath ED Review of Systems ROS: Stated complaint: VEE Other details as noted in HPI Comment: All other systems reviewed and negative Constitutional: denies: chills, fever Respiratory: SOB at rest Cardiovascular: denies: chest pain, palpitations Gastrointestinal: denies: abdominal pain, nausea, diarrhea Genitourinary: denies: urgency, dysuria, discharge Musculoskeletal: denies: back pain, joint swelling, arthralgia Skin: denies: rash, lesions Neurological: denies: headache, weakness, paresthesias Psychiatric: denies: anxiety, depression ED Past Medical Hx - Past Medical History Previous Medical History?: Yes Hx Psychiatric Treatment: No Hx Asthma: Yes Hx COPD: Yes - Surgical History Hx Cholecystectomy: Yes Additional Surgical History: tubal ligation. tosillectomy - Social History Smoking Status: Current Every Day Smoker Substance Use Type: None - Medications Home Medications: Home Medications Medication Instructions Recorded Confirmed Last Taken Type Budesoni/Formotero 160-4.5(Nf) 2 puff IH BID #1 inha 01/05/14 Unknown Rx [Symbicort 160-4.5] Montelukast Sodium [Singulair] 10 mg PO DAILY #30 tablet 01/05/14 Unknown Rx Albuterol Mdi (or & Nicu Only) 2 puff IH QID PRN #1 inhalation 02/28/14 Unknown Rx [ProAir HFA Inhaler] Loratadine (Nf) [Claritin] 10 mg PO DAILY #30 tablet 02/28/14 Unknown Rx predniSONE [Deltasone] 50 mg PO QDAY #5 tab 02/28/14 Unknown Rx Albuterol Mdi (or & Nicu Only) 2 puff IH QID PRN #1 inhalation 11/23/16 Unknown Rx [Proair] Albuterol Mdi (or & Nicu Only) 2 puff IH QID PRN #8.5 gram 08/15/20 Unknown Rx [ProAir HFA Inhaler] Doxycycline Hyclate [Doxycycline 100 mg PO Q12HR 7 Days #14 tab 08/15/20 Unknown Rx Hyclate TAB] Prednisone [predniSONE 10 mg 10 mg PO .TAPER #1 tab.ds.pk 08/15/20 Unknown Rx (6-Day Pack, 21 Tabs)] predniSONE [Deltasone] 20 mg PO QDAY #5 tab 09/04/20 Unknown Rx Albuterol Mdi (or & Nicu Only) 2 puff IH QID PRN #1 inhalation 12/14/20 Unknown Rx [ProAir HFA Inhaler] Budesonide/Formoterol Fumarate 10.2 gm IH BID #1 hfa.aer.ad 12/14/20 Unknown Rx [Symbicort 160-4.5 Mcg Inhaler] Prednisone [predniSONE 5 mg (6-Day 5 mg PO .TAPER 1 Days #1 tab.ds.pk 12/14/20 Unknown Rx Pack, 21 Tabs)] ALBUTEROL NEB's [Proventil 0.083% 2.5 mg IH TID PRN #1 box 01/14/21 Unknown Rx NEBS] Albuterol Sulfate [Proair 90 mcg IH Q4H #1 aer.pow.ba 01/14/21 Unknown Rx Respiclick] Albuterol Mdi (or & Nicu Only) 2 puff IH Q6H PRN #8.5 gram 03/01/21 Unknown Rx [ProAir HFA Inhaler] Prednisone [predniSONE 10 mg 10 mg PO .TAPER #1 tab.ds.pk 03/01/21 Unknown Rx (6-Day Pack, 21 Tabs)] Albuterol Sulfate [Proair 90 mcg IH Q4HR PRN #2 aer.pow.ba 09/22/21 Unknown Rx Respiclick] DOXYCYCLINE Hyclate [Vibramycin] 100 mg PO Q12HR #10 capsule 09/22/21 Unknown Rx Furosemide [Lasix] 20 mg PO QDAY #30 tablet 09/22/21 Unknown Rx Ipratropium (Nf) [Atrovent] 2 puff IH Q6HR PRN #1 inha 09/22/21 Unknown Rx Nicotine Polacrilex [Nicotine Gum] 4 mg BC PRN #1 pack 09/22/21 Unknown Rx Tiotropium [place] [Spiriva] 1 puff IH QDAY #1 inh 09/22/21 Unknown Rx predniSONE [Deltasone] 40 mg PO QDAY #8 tab 09/22/21 Unknown Rx ED Physical Exam - General Limitations: No Limitations General appearance: alert, in no apparent distress - Head Head exam: Present: atraumatic, normocephalic - Respiratory Respiratory exam: Present: respiratory distress (Mild), wheezes (Bilateral expiratory wheezing) - Cardiovascular Cardiovascular Exam: Present: regular rate, normal rhythm. Absent: systolic murmur, diastolic murmur, rubs, gallop - GI/Abdominal GI/Abdominal exam: Present: soft, normal bowel sounds - Rectal Rectal exam: Present: deferred - Neurological Exam Neurological exam: Present: alert, oriented X3, CN II-XII intact - Psychiatric Psychiatric exam: Present: normal affect, normal mood - Skin Skin exam: Present: warm, dry, intact, normal color ED Course Vital Signs 12/26/21 12/26/21 12/26/21 01:51 02:03 03:51 Temperature 97.9 F Pulse Rate 85 111 H Pulse Rate [ 101 H Bilateral Throughout] Respiratory 18 17 Rate Respiratory 18 Rate [Bilateral Throughout] Blood Pressure 130/82 Blood Pressure 124/74 [Right] O2 Sat by Pulse 96 94 Oximetry 12/26/21 12/26/21 03:55 03:57 Temperature 98.4 F Pulse Rate 111 H Pulse Rate [ Bilateral Throughout] Respiratory 20 20 Rate Respiratory Rate [Bilateral Throughout] Blood Pressure 124/74 Blood Pressure [Right] O2 Sat by Pulse 94 94 Oximetry ED Medical Decision Making - Lab Data Result diagrams: 12/26/21 02:28 12/26/21 02:28 - Medical Decision Making Patient given DuoNeb. No acute cardiopulmonary findings on chest x-ray. X-ray of right lower leg and forearm ordered as patient reports fall few days ago. Both are negative for acute injury. On reassessment patient is sleeping with oxygen saturation of 94% on 3 L which is her home setting. Stable for discharge home with return precautions. Critical care attestation.: If time is entered above; I have spent that time in minutes in the direct care of this critically ill patient, excluding procedure time. ED Disposition Clinical Impression: COPD exacerbation Disposition: 01 HOME / SELF CARE / HOMELESS Is pt being admited?: No Does the pt Need Aspirin: No Condition: Stable Instructions: Chronic Obstructive Pulmonary Disease (ED), Chronic Obstructive Pulmonary Disease Referrals: PRIMARY CARE, [Primary Care Provider] - 3-5 Days Time of Disposition: 05:12
[2021-12-26 05:29] VITALS: BP 133/77
== END 2021-12-26 05:30 | disposition home or self-care (01) ==
LOC: ED 01:39
DX: J44.1 Chronic obstructive pulmonary disease with (acute) exacerbation (principal); F17.200 Nicotine dependence, unspecified, uncomplicated; Z90.49 Acquired absence of other specified parts of digestive tract
CPT/HCPCS: 36415; 71045; 80048; 85025; 94640; 94644; 99284

== ENCOUNTER 2021-12-28 16:32 | Emergency (ER) | payer MEDICAID ==
[2021-12-28] MEDS ORDERED: IPRATROPIUM 0.02% NEBU 2.5 ML IH ONE (16:52)
[2021-12-28] MEDS ORDERED: ALBUTEROL 2.5 MG/3 ML NEBU IH ONE (16:52)
--- NOTE | 2021-12-28 16:56 | Emergency Department Report ---
ED General Adult HPI - General Chief complaint: Dyspnea/Respdistress Stated complaint: SHORTNESS OF BREATH Time Seen by Provider: 12/28/21 16:40 Source: patient, EMS ( EMS documentation not available at time of chart dictation . Verbal report received from emergency medical services), RN notes reviewed Mode of arrival: Stretcher Limitations: No Limitations - History of Present Illness Initial comments: The patient is a 56-year-old female with a history of COPD, reportedly on home oxygen, prescribed by Kaela Escamilla, typically 2 to 3 L of home oxygen, patient reports having run out of home oxygen, and is due to get home oxygen replaced on Saturday, presenting to the ER today with a complaint of painless shortness of breath, cough and wheezing. Patient denies physical pain. She endorses mild mucus production. She denies additional injuries or complaints EMS reports that they started oxygen in the field, as well as albuterol therapy. Patient declined steroids, as she indicates that she has a "allergic reaction" to prednisone. I have personally prescribed prednisone to this patient in the past without issue or difficulty -: Gradual Severity scale (0 -10): 0 Consistency: constant Improves with: medication, rest Worsens with: movement Associated Symptoms: denies other symptoms - Related Data Previous Rx's Medication Instructions Recorded Last Taken Type Budesoni/Formotero 160-4.5(Nf) 2 puff IH BID #1 inha 01/05/14 Unknown Rx [Symbicort 160-4.5] Montelukast Sodium [Singulair] 10 mg PO DAILY #30 tablet 01/05/14 Unknown Rx Albuterol Mdi (or & Nicu Only) 2 puff IH QID PRN #1 inhalation 02/28/14 Unknown Rx [ProAir HFA Inhaler] Loratadine (Nf) [Claritin] 10 mg PO DAILY #30 tablet 02/28/14 Unknown Rx predniSONE [Deltasone] 50 mg PO QDAY #5 tab 02/28/14 Unknown Rx Albuterol Mdi (or & Nicu Only) 2 puff IH QID PRN #1 inhalation 11/23/16 Unknown Rx [Proair] Albuterol Mdi (or & Nicu Only) 2 puff IH QID PRN #8.5 gram 08/15/20 Unknown Rx [ProAir HFA Inhaler] Doxycycline Hyclate [Doxycycline 100 mg PO Q12HR 7 Days #14 tab 08/15/20 Unknown Rx Hyclate TAB] Prednisone [predniSONE 10 mg 10 mg PO .TAPER #1 tab.ds.pk 08/15/20 Unknown Rx (6-Day Pack, 21 Tabs)] predniSONE [Deltasone] 20 mg PO QDAY #5 tab 09/04/20 Unknown Rx Albuterol Mdi (or & Nicu Only) 2 puff IH QID PRN #1 inhalation 12/14/20 Unknown Rx [ProAir HFA Inhaler] Budesonide/Formoterol Fumarate 10.2 gm IH BID #1 hfa.aer.ad 12/14/20 Unknown Rx [Symbicort 160-4.5 Mcg Inhaler] Prednisone [predniSONE 5 mg (6-Day 5 mg PO .TAPER 1 Days #1 tab.ds.pk 12/14/20 Unknown Rx Pack, 21 Tabs)] ALBUTEROL NEB's [Proventil 0.083% 2.5 mg IH TID PRN #1 box 01/14/21 Unknown Rx NEBS] Albuterol Sulfate [Proair 90 mcg IH Q4H #1 aer.pow.ba 01/14/21 Unknown Rx Respiclick] Albuterol Mdi (or & Nicu Only) 2 puff IH Q6H PRN #8.5 gram 03/01/21 Unknown Rx [ProAir HFA Inhaler] Prednisone [predniSONE 10 mg 10 mg PO .TAPER #1 tab.ds.pk 03/01/21 Unknown Rx (6-Day Pack, 21 Tabs)] Albuterol Sulfate [Proair 90 mcg IH Q4HR PRN #2 aer.pow.ba 09/22/21 Unknown Rx Respiclick] DOXYCYCLINE Hyclate [Vibramycin] 100 mg PO Q12HR #10 capsule 09/22/21 Unknown Rx Furosemide [Lasix] 20 mg PO QDAY #30 tablet 09/22/21 Unknown Rx Ipratropium (Nf) [Atrovent] 2 puff IH Q6HR PRN #1 inha 09/22/21 Unknown Rx Nicotine Polacrilex [Nicotine Gum] 4 mg BC PRN #1 pack 09/22/21 Unknown Rx Tiotropium [place] [Spiriva] 1 puff IH QDAY #1 inh 09/22/21 Unknown Rx predniSONE [Deltasone] 40 mg PO QDAY #8 tab 09/22/21 Unknown Rx Albuterol Sulfate [Albuterol 0.63% 0.63 mg IH Q4HR PRN #2 ml 12/28/21 Unknown Rx NEBS] Albuterol Sulfate [Proair 90 mcg IH Q4HR PRN #2 aer.pow.ba 12/28/21 Unknown Rx Respiclick] Ipratropium (Nf) [Atrovent] 2 puff IH Q6HR PRN #1 inha 12/28/21 Unknown Rx Ipratropium [Atrovent NEB] 0.5 mg IH Q4HR #2 ml 12/28/21 Unknown Rx Mineral Oil/Petrolatum,White 3.5 gm OP PRN PRN #1 bottle 12/28/21 Unknown Rx [Refresh Lacri-Lube Ointment] Allergies Allergy/AdvReac Type Severity Reaction Status Date / Time codeine Allergy Swelling Verified 12/28/21 16:39 levofloxacin Allergy Swelling Verified 12/28/21 16:39 prednisone Allergy Shortness Verified 12/28/21 16:39 of Breath ED Review of Systems ROS: Stated complaint: SHORTNESS OF BREATH Other details as noted in HPI Comment: All other systems reviewed and negative Respiratory: cough, shortness of breath, SOB with exertion, SOB at rest, wheezing Cardiovascular: denies: chest pain Gastrointestinal: denies: abdominal pain Musculoskeletal: denies: back pain ED Past Medical Hx - Past Medical History Hx Psychiatric Treatment: No Hx Asthma: Yes Hx COPD: Yes - Surgical History Hx Cholecystectomy: Yes Additional Surgical History: tubal ligation. tosillectomy - Social History Smoking Status: Current Every Day Smoker Substance Use Type: None - Medications Home Medications: Home Medications Medication Instructions Recorded Confirmed Last Taken Type Budesoni/Formotero 160-4.5(Nf) 2 puff IH BID #1 inha 01/05/14 Unknown Rx [Symbicort 160-4.5] Montelukast Sodium [Singulair] 10 mg PO DAILY #30 tablet 01/05/14 Unknown Rx Albuterol Mdi (or & Nicu Only) 2 puff IH QID PRN #1 inhalation 02/28/14 Unknown Rx [ProAir HFA Inhaler] Loratadine (Nf) [Claritin] 10 mg PO DAILY #30 tablet 02/28/14 Unknown Rx predniSONE [Deltasone] 50 mg PO QDAY #5 tab 02/28/14 Unknown Rx Albuterol Mdi (or & Nicu Only) 2 puff IH QID PRN #1 inhalation 11/23/16 Unknown Rx [Proair] Albuterol Mdi (or & Nicu Only) 2 puff IH QID PRN #8.5 gram 08/15/20 Unknown Rx [ProAir HFA Inhaler] Doxycycline Hyclate [Doxycycline 100 mg PO Q12HR 7 Days #14 tab 08/15/20 Unknown Rx Hyclate TAB] Prednisone [predniSONE 10 mg 10 mg PO .TAPER #1 tab.ds.pk 08/15/20 Unknown Rx (6-Day Pack, 21 Tabs)] predniSONE [Deltasone] 20 mg PO QDAY #5 tab 09/04/20 Unknown Rx Albuterol Mdi (or & Nicu Only) 2 puff IH QID PRN #1 inhalation 12/14/20 Unknown Rx [ProAir HFA Inhaler] Budesonide/Formoterol Fumarate 10.2 gm IH BID #1 hfa.aer.ad 12/14/20 Unknown Rx [Symbicort 160-4.5 Mcg Inhaler] Prednisone [predniSONE 5 mg (6-Day 5 mg PO .TAPER 1 Days #1 tab.ds.pk 12/14/20 Unknown Rx Pack, 21 Tabs)] ALBUTEROL NEB's [Proventil 0.083% 2.5 mg IH TID PRN #1 box 01/14/21 Unknown Rx NEBS] Albuterol Sulfate [Proair 90 mcg IH Q4H #1 aer.pow.ba 01/14/21 Unknown Rx Respiclick] Albuterol Mdi (or & Nicu Only) 2 puff IH Q6H PRN #8.5 gram 03/01/21 Unknown Rx [ProAir HFA Inhaler] Prednisone [predniSONE 10 mg 10 mg PO .TAPER #1 tab.ds.pk 03/01/21 Unknown Rx (6-Day Pack, 21 Tabs)] Albuterol Sulfate [Proair 90 mcg IH Q4HR PRN #2 aer.pow.ba 09/22/21 Unknown Rx Respiclick] DOXYCYCLINE Hyclate [Vibramycin] 100 mg PO Q12HR #10 capsule 09/22/21 Unknown Rx Furosemide [Lasix] 20 mg PO QDAY #30 tablet 09/22/21 Unknown Rx Ipratropium (Nf) [Atrovent] 2 puff IH Q6HR PRN #1 inha 09/22/21 Unknown Rx Nicotine Polacrilex [Nicotine Gum] 4 mg BC PRN #1 pack 09/22/21 Unknown Rx Tiotropium [place] [Spiriva] 1 puff IH QDAY #1 inh 09/22/21 Unknown Rx predniSONE [Deltasone] 40 mg PO QDAY #8 tab 09/22/21 Unknown Rx Albuterol Sulfate [Albuterol 0.63% 0.63 mg IH Q4HR PRN #2 ml 12/28/21 Unknown Rx NEBS] Albuterol Sulfate [Proair 90 mcg IH Q4HR PRN #2 aer.pow.ba 12/28/21 Unknown Rx Respiclick] Ipratropium (Nf) [Atrovent] 2 puff IH Q6HR PRN #1 inha 12/28/21 Unknown Rx Ipratropium [Atrovent NEB] 0.5 mg IH Q4HR #2 ml 12/28/21 Unknown Rx Mineral Oil/Petrolatum,White 3.5 gm OP PRN PRN #1 bottle 12/28/21 Unknown Rx [Refresh Lacri-Lube Ointment] ED Physical Exam - General Limitations: No Limitations General appearance: alert, anxious, obese - Head Head exam: Present: atraumatic, normocephalic - Eye Eye exam: Present: normal appearance, PERRL, EOMI. Absent: nystagmus - ENT ENT exam: Present: normal exam, normal orophraynx, mucous membranes moist, TM's normal bilaterally, normal external ear exam - Neck Neck exam: Present: normal inspection, full ROM. Absent: tenderness, meningismus - Respiratory Respiratory exam: Present: wheezes, rhonchi. Absent: respiratory distress, decreased breath sounds - Cardiovascular Cardiovascular Exam: Present: regular rate, normal rhythm, normal heart sounds. Absent: bradycardia, tachycardia, irregular rhythm, systolic murmur, diastolic murmur, rubs, gallop - GI/Abdominal GI/Abdominal exam: Present: soft. Absent: distended, tenderness, guarding, rebound, rigid, pulsatile mass - Extremities Exam Extremities exam: Present: normal inspection, full ROM, pedal edema (1+ edema in the bilateral lower extremity), other (2+ pulses noted in the bilateral upper and lower extremities. There is no palpable cord. negative Homans sign. Muscular compartments are soft. The pelvis is stable.). Absent: calf tenderness - Back Exam Back exam: Present: normal inspection. Absent: tenderness, CVA tenderness (R), CVA tenderness (L), paraspinal tenderness, vertebral tenderness - Neurological Exam Neurological exam: Present: alert, oriented X3, other (No facial droop. Tongue midline. Extraocular movements intact bilaterally. Facial sensation intact to light touch in V1, V2, V3 distribution bilaterally. 5 and a 5 strength in 4 extremities. Sensation intact to light touch in 4 extremities.). Absent: motor sensory deficit - Psychiatric Psychiatric exam: Present: normal affect, normal mood - Skin Skin exam: Present: warm, dry, intact, normal color. Absent: rash ED Course Vital Signs 12/28/21 12/28/21 12/28/21 16:37 17:15 17:16 Temperature 98.4 F Pulse Rate 110 H 87 Pulse Rate [ 100 H Anterior Bilateral] Respiratory 20 19 Rate Respiratory 20 Rate [Anterior Bilateral] Blood Pressure 112/82 Blood Pressure 160/96 [Left] O2 Sat by Pulse 98 99 Oximetry - Reevaluation(s) Reevaluation #1: 12/28/21 17:58 Differential diagnosis, include but not limited to: Bronchitis, COPD, asthma, reactive airways disease Assessment and plan: 56-year-old female who denies travel, surgery, immobilization, DVT/PE risk factors, seen in this department 2 days ago for COPD exacerbation, laboratory studies and x-ray at that time were unremarkable, likely presenting with recurrent/persistent COPD. Patient's has home oxygen, but is due to not have home oxygen replaced until Saturday which is next week. Start albuterol Atrovent, recommended steroids which patient declined. Patient is awake, alert, oriented, sober and of sound mind. I have requested case management consultation to assist with acquiring home oxygen. Reassessed. Nursing team is asked to provide a trial of ambulation 12/28/21 19:19 Lung sounds are clear. Trial of ambulation, O2 sats desaturates to 88%. Patient reports readiness for discharge, and further reports that she will be able to use oxygen supplies at home from a friend. She also reports that she would like to be discharged, and has also been seen by case management, who is going to assist with home oxygen therapy. The patient declined steroids. She is asking for artificial tears for eye crusting in the morning. She is asking for ibuprofen for generalized pain. However, she endorses readiness for discharge. ED Medical Decision Making - Lab Data Vital Signs 12/28/21 12/28/21 12/28/21 16:37 17:15 17:16 Temperature 98.4 F Pulse Rate 110 H 87 Pulse Rate [ 107 H Anterior Bilateral] Respiratory 20 19 Rate Respiratory 22 Rate [Anterior Bilateral] Blood Pressure 112/82 Blood Pressure 160/96 [Left] O2 Sat by Pulse 98 99 Oximetry - EKG Data -: EKG Interpreted by [place] EKG shows normal: sinus rhythm Rate: normal - EKG Data 12/28/21 17:57 EKG is interpreted at 17: 35 Sinus rhythm, rate 95 bpm. Normal axis, normal P wave axis, motion artifact, QTC 4 4 9 ms. Abnormal EKG. Not a STEMI - Radiology Data Radiology results: pending, report reviewed, image reviewed Chest x-ray from 2 days ago reviewed and Critical care attestation.: If time is entered above; I have spent that time in minutes in the direct care of this critically ill patient, excluding procedure time. ED Disposition Clinical Impression: Reactive airway disease, Case management patient Disposition: 01 HOME / SELF CARE / HOMELESS Is pt being admited?: No Does the pt Need Aspirin: No Condition: Good Instructions: Chronic Obstructive Pulmonary Disease Additional Instructions: Please continue home medications. Use the artificial tears as needed and directed. May take [id number] acetaminophen or ibuprofen as needed for physical pain. Follow-up with a primary care doctor within the next month. Follow-up with a machine ii engraver within the next month. Please return to the emergency room right away with new pain, worsened pain, migration of pain, projectile vomiting, change in mental status, confusion, in ability tolerate liquid feeds, new, worsened or different symptoms not present on the initial emergency room evaluation Avoid consumption of tobacco and smoke products. Referrals: [facility] [Provider Group] - 3-5 Days CRISTY MCGILL MD [Staff Physician] - 3-5 Days
[2021-12-28] MEDS: dexAMETHasone 20 MG/5 ML VIAL IM STA ×2 (17:23→17:24)
[2021-12-28] MEDS ORDERED: IBUPROFEN 600 MG TAB PO ONE (19:20)
[2021-12-28 19:43] VITALS: BP 114/72
--- NOTE | 2021-12-30 09:43 | Electrocardiograph Report ---
[facility] Test Date: 2021-12-28 Test Time: 17:35:19 Pat Name: DILLAN CORRIGAN Department: Room: Gender: F Seam Taper Machine: 0000 : 1965 Requested By: ALDEN PAT Order Number: [id number] Reading MD: Erick Pérez Measurements Intervals [place] Rate: 95 P: 75 MN: 146 QRS: 1 QRSD: 83 T: 30 QT: 357 QTc: 449 Interpretive Statements Sinus rhythm Left atrial enlargement Low voltage, precordial leads Poor R wave progression Compared to ECG 09/22/2021 16:43:34 Poor R wave progression is now present Low QRS voltage now present Electronically Signed On 12-30-2021 9:43:02 EDT by Erick Pérez
== END 2021-12-28 19:50 | disposition home or self-care (01) ==
LOC: ED 16:32
DX: J45.909 Unspecified asthma, uncomplicated (principal); Z71.89 Other specified counseling; Z88.5 Allergy status to narcotic agent; Z88.1 Allergy status to other antibiotic agents; F17.200 Nicotine dependence, unspecified, uncomplicated
CPT/HCPCS: 93005; 94644; 99283; J1100

== ENCOUNTER 2021-12-30 06:06 | Inpatient (IN) | payer MEDICAID ==
[2021-12-30] MEDS ORDERED: BUDESONIDE 0.5 MG/2 ML NEBU IH ONE (07:26)
[2021-12-30] MEDS ORDERED: IPRATROPIUM 0.02% NEBU 2.5 ML IH ONE (07:34)
[2021-12-30] MEDS ORDERED: ALBUTEROL 2.5 MG/3 ML NEBU IH ONE (07:34)
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
[2021-12-30] MEDS: ARFORMOTEROL 15 MCG/2 ML NEBU IH SCH ×2 (07:40→20:48)
[2021-12-30 07:57] LABS: Eosinophils # (Auto) 0.2 K/mm3 (0.0-0.4); Eosinophils % (Auto) 5.8 % (0.0-4.3); Lymphocytes # (Auto) 0.7 K/mm3 (1.2-5.4); Mean Corpuscular HGB Conc 31 % (30-34); Mean Corpuscular Volume 87 fl (79-97); Monocytes # (Auto) 0.4 K/mm3 (0.0-0.8); Monocytes % (Auto) 9.5 % (0.0-7.3); Platelet Count 188 K/mm3 (140-440); Red Blood Count 5.09 M/mm3 (3.65-5.03); Red Cell Distribution Width 17.2 % (13.2-15.2)
[2021-12-30 07:58] LABS: Hematocrit 44.4 % (30.3-42.9); Hemoglobin 13.6 gm/dl (10.1-14.3)
[2021-12-30 08:15] LABS: BUN/Creatinine Ratio 16; Blood Urea Nitrogen 13 mg/dL (7-17); Calcium 8.4 mg/dL (8.4-10.2); Hemolysis Index 13
--- NOTE | 2021-12-30 09:24 | XRay Report ---
XR chest 1V ap INDICATION / CLINICAL INFORMATION: Shortness of breath. COMPARISON: 12/26/2021 FINDINGS: SUPPORT DEVICES: None. HEART /PULMONARY VASCULATURE: No significant abnormality. LUNGS / PLEURA: No significant pulmonary or pleural abnormality. No pneumothorax. ADDITIONAL FINDINGS: No significant additional findings. IMPRESSION: 1. No acute findings. Signer Name: Martin Abarca MD Signed: 12/30/2021 9:20 AM Workstation Name: [id number]
[2021-12-30] MEDS ORDERED: ONDANSETRON 4 MG/2 ML INJ IV PRN (10:04)
[2021-12-30] MEDS ORDERED: NALOXONE 0.4 MG/1 ML INJ IV PRN (10:04)
[2021-12-30] MEDS ORDERED: ACETAMINOPHEN 325 MG TAB PO PRN (10:04)
[2021-12-30] MEDS ORDERED: MORPHINE 2 MG/1 ML INJ IV PRN (10:04)
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
[2021-12-30] MEDS ORDERED: SODIUM POLYSTYRENE 15 GM/60 ML ORAL LIQD PO NR (11:00)
[2021-12-30] MEDS: methylPREDNISolone Sod Succinate 125 MG/2 ML INJ IV SCH ×3 (11:30→23:00)
[2021-12-30] MEDS: IPRATROPIUM/ALBUTEROL SULFATE 3 ML AMPUL.NEB IH SCH ×2 (13:38→20:48)
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
[2021-12-30 14:07] LABS: C-Reactive Protein 0.4 mg/dL (0.00-1.30)
[2021-12-30] MEDS: BUDESONIDE 0.5 MG/2 ML NEBU IH SCH (20:49)
[2021-12-30] MEDS: FAMOTIDINE 20 MG TAB PO SCH (22:59)
[2021-12-30] MEDS: SENNOSIDES 8.6 MG TAB PO SCH (22:59)
[2021-12-30] MEDS: MONTELUKAST 10 MG TAB PO SCH (23:00)
[2021-12-31] MEDS: IPRATROPIUM/ALBUTEROL SULFATE 3 ML AMPUL.NEB IH SCH ×4 (04:24→20:10)
[2021-12-31] MEDS: methylPREDNISolone Sod Succinate 125 MG/2 ML INJ IV SCH ×3 (05:57→21:59)
[2021-12-31 06:35] LABS: Eosinophils # (Auto) 0.2 K/mm3 (0.0-0.4); Eosinophils % (Auto) 6.6 % (0.0-4.3); Lymphocytes # (Auto) 0.9 K/mm3 (1.2-5.4); Lymphocytes % (Auto) 24.5 % (13.4-35.0); Mean Corpuscular HGB Conc 31 % (30-34); Mean Corpuscular Volume 88 fl (79-97); Monocytes # (Auto) 0.4 K/mm3 (0.0-0.8); Monocytes % (Auto) 11.4 % (0.0-7.3); Platelet Count 185 K/mm3 (140-440); Red Blood Count 4.92 M/mm3 (3.65-5.03); Red Cell Distribution Width 16.8 % (13.2-15.2)
[2021-12-31 06:37] LABS: Hematocrit 43.1 % (30.3-42.9); Hemoglobin 13.1 gm/dl (10.1-14.3)
[2021-12-31 06:50] LABS: Blood Urea Nitrogen 15 mg/dL (7-17); Calcium 8.5 mg/dL (8.4-10.2); Hemolysis Index 2
[2021-12-31 06:58] LABS: BUN/Creatinine Ratio 21
[2021-12-31] MEDS: BUDESONIDE 0.5 MG/2 ML NEBU IH SCH ×2 (08:03→20:10)
[2021-12-31] MEDS: ARFORMOTEROL 15 MCG/2 ML NEBU IH SCH ×2 (08:04→20:10)
[2021-12-31] MEDS: SENNOSIDES 8.6 MG TAB PO SCH ×2 (09:48→21:58)
[2021-12-31] MEDS: FAMOTIDINE 20 MG TAB PO SCH ×2 (09:48→21:58)
--- NOTE | 2021-12-31 10:56 | Consultation ---
History of Present Illness - Reason for Consult Consult date: 12/31/21 Reason for consult: MHE - History of Present Psychiatric Illness HPI: Patient is a 56-year-old female present with chief complaint of COPD on home o2 at 3 liters, Hypertension, Cholecystectomy, presenting to the ED with complaints of shortness of breath, she reports that she is out of her home oxygen and next delivery will be 10, she tells me she does not also have concentrator. She also states that she is out of her medication, symbicort. She was noted to have hypoxia on admission with saturation of 78% on room air which improved to 94% on 3liters of oxygen. She denies any chest pain, nausea, vomiting, or fever. She has not vaccinated against COVID. She continues to smoke some and states it when she thinks about her children that and some family members. Futher review of record shows that she has had multiple visits to the ED for the same reasons. she also has not had follow up with her doctors it appears. The patient was seen today. She is uncooperative, irritable and rude. She tells me she doesn't need a psychiatrist and that she has never needed one. She says "I came in for shortness of breath not to see a psychiatrist." She says "please leave I have nothing else to say."Will start the patient on an antipsychotic based on report of HPI. PAST PSYCHIATRIC HISTORY: Unable to obtain PAST MEDICAL HISTORY: None reported or document Family Psychiatric History: None reported or documented SOCIAL HISTORY Unable to obtain REVIEW OF SYSTEMS Unable to obtain MENTAL STATUS EXAMINATION Unable to obtain Diagnoses: Delusional Disorder Treatment Plan Abilify 5mg po daily Doxepin 10mg po qhs Haldol 5mg po q6h prn agitation Medical: per primary Sitter: defer to primary Disposition: Do not recommend acute psychiatric inpatient Will follow. Thanks Case staffed with Dr. Thompson Medications and Allergies Allergies Allergy/AdvReac Type Severity Reaction Status Date / Time codeine Allergy Swelling Verified 12/28/21 16:39 levofloxacin Allergy Swelling Verified 12/28/21 16:39 prednisone Allergy Shortness Verified 12/28/21 16:39 of Breath Home Medications Medication Instructions Recorded Confirmed Last Taken Type Budesoni/Formotero 160-4.5(Nf) 2 puff IH BID #1 inha 01/05/14 12/30/21 Unknown Rx [Symbicort 160-4.5] Albuterol Mdi (or & Nicu Only) 2 puff IH QID PRN #1 inhalation 02/28/14 12/30/21 Unknown Rx [ProAir HFA Inhaler] Albuterol Mdi (or & Nicu Only) 2 puff IH QID PRN #1 inhalation 11/23/16 12/30/21 Unknown Rx [Proair] Albuterol Mdi (or & Nicu Only) 2 puff IH QID PRN #8.5 gram 08/15/20 12/30/21 Unknown Rx [ProAir HFA Inhaler] Albuterol Mdi (or & Nicu Only) 2 puff IH QID PRN #1 inhalation 12/14/20 12/30/21 Unknown Rx [ProAir HFA Inhaler] Budesonide/Formoterol Fumarate 10.2 gm IH BID #1 hfa.aer.ad 12/14/20 12/30/21 Unknown Rx [Symbicort 160-4.5 Mcg Inhaler] ALBUTEROL NEB's [Proventil 0.083% 2.5 mg IH TID PRN #1 box 01/14/21 12/30/21 Unknown Rx NEBS] Albuterol Sulfate [Proair 90 mcg IH Q4H #1 aer.pow.ba 01/14/21 12/30/21 Unknown Rx Respiclick] Albuterol Mdi (or & Nicu Only) 2 puff IH Q6H PRN #8.5 gram 03/01/21 12/30/21 Unknown Rx [ProAir HFA Inhaler] Albuterol Sulfate [Proair 90 mcg IH Q4HR PRN #2 aer.pow.ba 09/22/21 12/30/21 Unknown Rx Respiclick] Ipratropium (Nf) [Atrovent] 2 puff IH Q6HR PRN #1 inha 09/22/21 12/30/21 Unknown Rx Tiotropium [place] [Spiriva] 1 puff IH QDAY #1 inh 09/22/21 12/30/21 Unknown Rx Albuterol Sulfate [Albuterol 0.63% 0.63 mg IH Q4HR PRN #2 ml 12/28/21 12/30/21 Unknown Rx NEBS] Albuterol Sulfate [Proair 90 mcg IH Q4HR PRN #2 aer.pow.ba 12/28/21 12/30/21 Unknown Rx Respiclick] Ipratropium (Nf) [Atrovent] 2 puff IH Q6HR PRN #1 inha 12/28/21 12/30/21 Unknown Rx Ipratropium [Atrovent NEB] 0.5 mg IH Q4HR #2 ml 12/28/21 12/30/21 Unknown Rx Active Meds: Active Medications Acetaminophen (Acetaminophen 325 Mg Tab) 650 mg PO Q4H PRN PRN Reason: Pain MILD(1-3)/Fever >100.5/URIBE Albuterol/Ipratropium (Ipratropium/Albuterol Sulfate 3 Ml Ampul.Neb) 1 ampul IH Q6HRT [facility] Last Admin: 12/31/21 08:03 Dose: 1 ampul Arformoterol Tartrate (Arformoterol 15 Mcg/2 Ml Nebu) 15 mcg IH Q12HRT [facility] Last Admin: 12/31/21 08:04 Dose: 15 mcg Budesonide (Budesonide 0.5 Mg/2 Ml Nebu) 0.5 mg IH Q12HRT [facility] Last Admin: 12/31/21 08:03 Dose: 0.5 mg Famotidine (Famotidine 20 Mg Tab) 20 mg PO BID [facility] Last Admin: 12/31/21 09:48 Dose: Not Given Methylprednisolone Sodium Succinate (Methylprednisolone Sod Succinate 125 Mg/2 Ml Inj) 60 mg IV Q8HR [facility] Last Admin: 12/31/21 05:57 Dose: Not Given Montelukast Sodium (Montelukast 10 Mg Tab) 10 mg PO QHS [facility] Last Admin: 12/30/21 23:00 Dose: Not Given Morphine Sulfate (Morphine 2 Mg/1 Ml Inj) 2 mg IV Q4H PRN PRN Reason: Pain, Moderate (4-6) Naloxone HCl (Naloxone 0.4 Mg/1 Ml Inj) 0.1 mg IV Q2MIN PRN PRN Reason: Res Rate </= 8 or 02 SAT < 92% Ondansetron HCl (Ondansetron 4 Mg/2 Ml Inj) 4 mg IV Q4H PRN PRN Reason: Nausea And Vomiting Senna (Sennosides 8.6 Mg Tab) 8.6 mg PO Q12HR [facility] Last Admin: 12/31/21 09:48 Dose: Not Given Sodium Chloride (Sodium Chloride 0.9% 10 Ml Flush Syringe) 10 ml IV BID [facility] Last Admin: 12/31/21 09:49 Dose: 10 ml Sodium Chloride (Sodium Chloride 0.9% 10 Ml Flush Syringe) 10 ml IV PRN PRN PRN Reason: LINE FLUSH Mental Status Exam - Vital signs Last Vital Signs Temp 98.0 F 12/31/21 05:05 Pulse 85 12/31/21 05:05 Resp 16 12/31/21 05:05 BP 109/60 12/31/21 05:05 Pulse Ox 94 12/31/21 05:05 Results Result Diagrams: 12/31/21 06:03 12/31/21 06:03 Abnormal lab results 12/30/21 12/30/21 12/31/21 Range/Units 10:40 13:27 06:03 WBC 3.7 L (4.5-11.0) K/mm3 Hct 43.1 H (30.3-42.9) % MCH 27 L (28-32) pg RDW 16.8 H (13.2-15.2) % [place] % (Auto) 11.4 H (0.0-7.3) % Eos % (Auto) 6.6 H (0.0-4.3) % Lymph # (Auto) 0.9 L (1.2-5.4) K/mm3 D-Dimer 286.27 H (0-234) ng/mlDDU Carbon Dioxide (22-30) mmol/L Glucose 106 H (65-100) mg/dL Lactate Dehydrogenase 186 H (91-180) units/L 12/31/21 Range/Units 06:03 WBC (4.5-11.0) K/mm3 Hct (30.3-42.9) % MCH (28-32) pg RDW (13.2-15.2) % Gaines % (Auto) (0.0-7.3) % Eos % (Auto) (0.0-4.3) % Lymph # (Auto) (1.2-5.4) K/mm3 D-Dimer (0-234) ng/mlDDU Carbon Dioxide 36 H (22-30) mmol/L Glucose (65-100) mg/dL Lactate Dehydrogenase (91-180) units/L All other labs normal.
--- NOTE | 2021-12-31 10:59 | Progress Note ---
Assessment and Plan Impression: COPD with mild exacerbation Suspect hypercapnia given elevated bicarb on BMP History of tobacco abuse Hypertension Home oxygen dependent at 3 L nasal cannula. Recommendation: Check arterial blood gases it was ordered yesterday but has not yet performed continue with inhaled bronchodilator, steroids. Continue with supplemental oxygen Will require outpatient follow-up if patient willing for pulmonary function test and clinical follow-up. Thank you Subjective Date of service: 12/31/21 Interval history: Patient reports feeling better with less shortness of breath Objective Vital Signs - 12hr 12/31/21 12/31/21 04:00 05:05 Temperature 98.0 F Pulse Rate 85 Respiratory 16 Rate Blood Pressure 109/60 O2 Sat by Pulse 94 94 Oximetry Constitutional: no acute distress, alert, appears uncomfortable Eyes: non-icteric ENT: oropharynx moist, other (Edentulous) Neck: supple, no lymphadenopathy, no JVD Ascultation: Bilateral: diminished breath sounds Cardiovascular: regular rate and rhythm Gastrointestinal: normoactive bowel sounds, soft, non-tender Integumentary: normal Extremities: no cyanosis, no edema, pink and warm Neurologic: normal mental status, non-focal exam Psychiatric: mood appropriate CBC and BMP: 12/31/21 06:03 12/31/21 06:03 ABG, PT/INR, D-dimer: PT/INR, D-dimer D-Dimer 218.72 ng/mlDDU (0-234) 12/30/21 13:27 Abnormal lab findings: Abnormal Labs 12/30/21 12/30/21 12/30/21 07:42 07:42 10:40 WBC 4.0 L RBC 5.09 H Hct 44.4 H MCH 27 L RDW 17.2 H [place] % (Auto) 9.5 H Eos % (Auto) 5.8 H Lymph # (Auto) 0.7 L D-Dimer 286.27 H Potassium 5.3 H D Carbon Dioxide 36 H Glucose Lactate Dehydrogenase 12/30/21 12/31/21 12/31/21 13:27 06:03 06:03 WBC 3.7 L RBC Hct 43.1 H MCH 27 L RDW 16.8 H [place] % (Auto) 11.4 H Eos % (Auto) 6.6 H Lymph # (Auto) 0.9 L D-Dimer Potassium Carbon Dioxide 36 H Glucose 106 H Lactate Dehydrogenase 186 H
[2021-12-31] MEDS ORDERED: HALOPERIDOL LACTATE 5 MG/1 ML INJ IM PRN (11:03)
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
[2021-12-31] MEDS: ARIPiprazole 5 MG TAB PO SCH (17:39)
[2021-12-31] MEDS: MONTELUKAST 10 MG TAB PO SCH (21:59)
[2021-12-31] MEDS ORDERED: DOXEPIN 10 MG CAP PO SCH (22:00)
[2022-01-01] MEDS: IPRATROPIUM/ALBUTEROL SULFATE 3 ML AMPUL.NEB IH SCH ×3 (02:30→14:02)
[2022-01-01 05:25] VITALS: BP 109/52
[2022-01-01] MEDS: methylPREDNISolone Sod Succinate 125 MG/2 ML INJ IV SCH (06:06)
[2022-01-01] MEDS: BUDESONIDE 0.5 MG/2 ML NEBU IH SCH (10:02)
[2022-01-01] MEDS: ARFORMOTEROL 15 MCG/2 ML NEBU IH SCH (10:07)
[2022-01-01] MEDS: ARIPiprazole 5 MG TAB PO SCH (10:20)
[2022-01-01] MEDS: SENNOSIDES 8.6 MG TAB PO SCH (10:21)
[2022-01-01] MEDS: FAMOTIDINE 20 MG TAB PO SCH (10:21)
--- NOTE | 2022-01-01 10:48 | Progress Note ---
Subjective - Reason for Consult Consult date: 01/01/22 Reason for consult: MHE - Chief Complaint Chief complaint: The patient was seen today. She is irritable. She says she is ready to go home. The patient says she feels okay and slept well. She says she's been taking her meds and feeling calm. When I ask the patient if she was hallucinating or having thoughts of self harm, she becomes upset and says "didn't I tell you yesterday I didn't have any of that. Get out. I don't need no psych." Staff notes says the patient has been refusing meds and refused am care. Will order Haldol 5mg x 1 to r/o out paranoia. Will continue prn haldol for agitation as well. REVIEW OF SYSTEMS Unable to obtain MENTAL STATUS EXAMINATION Unable to obtain Diagnoses: Delusional Disorder Treatment Plan Abilify 5mg po daily Doxepin 10mg po qhs Haldol 5mg x 1 now. Haldol 5mg po q6h prn agitation Medical: per primary Sitter: defer to primary Disposition: Do not recommend acute psychiatric inpatient Will follow. Thanks Case staffed with Dr. Thompson Mental Status Exam - Vital signs Last Vital Signs Temp 99.0 F 01/01/22 05:00 Pulse 102 H 01/01/22 02:30 Resp 16 01/01/22 05:00 BP 109/52 01/01/22 05:00 Pulse Ox 93 01/01/22 04:00
[2022-01-01] MEDS ORDERED: HALOPERIDOL LACTATE 5 MG/1 ML INJ IM ONE (11:00)
--- NOTE | 2022-01-01 11:04 | Vascular Lab Report ---
DUPLEX DOPPLER LOWER EXTREMITY VEINS, BILATERAL INDICATION / CLINICAL INFORMATION: dvt. TECHNIQUE: Duplex doppler imaging was performed through the veins of both lower extremities using wolfgang ous compression and other maneuvers. COMPARISON: None available. FINDINGS: RIGHT COMMON FEMORAL VEIN: Negative. RIGHT FEMORAL VEIN: Negative. RIGHT POPLITEAL VEIN: Negative. RIGHT CALF VEINS: Negative. LEFT COMMON FEMORAL VEIN: Negative. LEFT FEMORAL VEIN: Negative. LEFT POPLITEAL VEIN: Negative. LEFT CALF VEINS: Negative. ADDITIONAL FINDINGS: None. IMPRESSION: 1. No sonographic evidence for DVT in either lower extremity. Scribed by: Nabila Sharif RDMS, CHRISTIANNE, RONAK Scribed: 01/01/2022 9:33 AM I have reviewed the images, agree with this report, and edited this report as needed. Signer Name: Shawn Abad MD Signed: 01/01/2022 11:00 AM Workstation Name: [id number]
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
--- NOTE | 2022-01-01 11:26 | Progress Note ---
Assessment and Plan Impression: COPD with mild exacerbation Suspect hypercapnia given elevated bicarb on BMP History of tobacco abuse Hypertension Home oxygen dependent at 3 L nasal cannula. Recommendation: Check arterial blood gases it was ordered yesterday but has not yet performed continue with inhaled bronchodilator, steroids. Steroid taper and combination of LAMA/LABA/ICS at home Continue with supplemental oxygen, on home O2 Will require outpatient follow-up if patient willing for pulmonary function test and clinical follow-up. Thank you Subjective Date of service: 01/01/22 Interval history: Patient reports feeling better with less shortness of breath. Still has some cough productive of white sputum. Wants to go home Objective Vital Signs - 12hr 01/01/22 01/01/22 01/01/22 02:30 04:00 05:00 Temperature 99.0 F Pulse Rate [ 102 H Bilateral Throughout] Respiratory 16 Rate Respiratory 18 Rate [Bilateral Throughout] Blood Pressure 109/52 O2 Sat by Pulse 93 Oximetry Constitutional: no acute distress, alert, appears uncomfortable Eyes: non-icteric ENT: oropharynx moist, other (Edentulous) Neck: supple, no lymphadenopathy, no JVD Ascultation: Bilateral: diminished breath sounds Cardiovascular: regular rate and rhythm Gastrointestinal: normoactive bowel sounds, soft, non-tender Integumentary: normal Extremities: no cyanosis, no edema, pink and warm Neurologic: normal mental status, non-focal exam Psychiatric: mood appropriate CBC and BMP: 12/31/21 06:03 12/31/21 06:03 ABG, PT/INR, D-dimer: PT/INR, D-dimer D-Dimer 218.72 ng/mlDDU (0-234) 12/30/21 13:27 Abnormal lab findings: Abnormal Labs 12/30/21 12/30/21 12/30/21 07:42 07:42 10:40 WBC 4.0 L RBC 5.09 H Hct 44.4 H MCH 27 L RDW 17.2 H [place] % (Auto) 9.5 H Eos % (Auto) 5.8 H Lymph # (Auto) 0.7 L D-Dimer 286.27 H Potassium 5.3 H D Carbon Dioxide 36 H Glucose Lactate Dehydrogenase 12/30/21 12/31/21 12/31/21 13:27 06:03 06:03 WBC 3.7 L RBC Hct 43.1 H MCH 27 L RDW 16.8 H [place] % (Auto) 11.4 H Eos % (Auto) 6.6 H Lymph # (Auto) 0.9 L D-Dimer Potassium Carbon Dioxide 36 H Glucose 106 H Lactate Dehydrogenase 186 H
== END 2022-01-01 14:15 | disposition home health service (06) | DRG 189 ==
LOC: ED 06:06 → 3A 10:14
PROVIDERS: ADMIT Internal Medicine; ATTEND Internal Medicine
PROC: 4A033R1 Measurement of Arterial Saturation, Peripheral, Percutaneous Approach (ICD-10-PCS; principal; 2021-12-30)
DX: J96.01 Acute respiratory failure with hypoxia (principal); J44.1 Chronic obstructive pulmonary disease with (acute) exacerbation; I10 Essential (primary) hypertension; E87.5 Hyperkalemia; F32.A Depression, unspecified; E78.5 Hyperlipidemia, unspecified; F22 Delusional disorders; Z20.822 Contact with and (suspected) exposure to COVID-19; E66.9 Obesity, unspecified; Z87.891 Personal history of nicotine dependence; Z88.5 Allergy status to narcotic agent; Z88.8 Allergy status to other drugs, medicaments and biological substances; Z90.49 Acquired absence of other specified parts of digestive tract; Z68.41 Body mass index [BMI] 40.0-44.9, adult
CPT/HCPCS: 36415; 71045; 80048; 82728; 82947; 83615; 84145; 85025; 85379; 86140; 87641; 93970; 94640; 94644; 94760; 99285; G0378; J2930

== ENCOUNTER 2022-01-25 17:10 | Emergency (ER) | payer MEDICAID ==
[2022-01-25 17:16] VITALS: BP 118/68
[2022-01-25] MEDS ORDERED: IPRATROPIUM/ALBUTEROL SULFATE 3 ML AMPUL.NEB IH ONE (21:25)
[2022-01-25] MEDS ORDERED: KETOROLAC 30 MG/1 ML INJ IM ONE (21:25)
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
== END 2022-01-27 06:58 | disposition left against medical advice (07) ==
LOC: ED 17:10
DX: M94.0 Chondrocostal junction syndrome [Tietze] (principal); R07.81 Pleurodynia; J45.909 Unspecified asthma, uncomplicated; Z88.6 Allergy status to analgesic agent
CPT/HCPCS: 99283

== ENCOUNTER 2022-01-26 13:42 | Emergency (ER) | payer MEDICAID ==
[2022-01-26 15:04] VITALS: BP 137/87
== END 2022-01-26 20:15 | disposition left against medical advice (07) ==
LOC: ED 13:42
DX: R06.02 Shortness of breath (principal); Z53.21 Procedure and treatment not carried out due to patient leaving prior to being seen by health care provider

== ENCOUNTER 2022-01-27 00:20 | Emergency (ER) | payer MEDICAID ==
[2022-01-27] MEDS ORDERED: ALBUTEROL 2.5 MG/3 ML NEBU IH ONE ×2 (03:13→04:49)
[2022-01-27] MEDS ORDERED: IPRATROPIUM 0.02% NEBU 2.5 ML IH ONE ×2 (03:13→04:49)
[2022-01-27] MEDS ORDERED: methylPREDNISolone Sod Succinate 125 MG/2 ML INJ IM ONE (03:14)
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
--- NOTE | 2022-01-27 03:57 | XRay Report ---
CHEST 1 VIEW INDICATION / CLINICAL INFORMATION: Shortness of breath, cough. COMPARISON: 12/30/2021 FINDINGS: SUPPORT DEVICES: None. HEART / MEDIASTINUM: No significant abnormality. LUNGS / PLEURA: No significant pulmonary or pleural abnormality. No pneumothorax. ADDITIONAL FINDINGS: No significant additional findings. IMPRESSION: 1. No acute findings. Signer Name: Hitesh Pena MD Signed: 01/27/2022 3:52 AM Workstation Name: [id number]
[2022-01-27 06:57] VITALS: BP 144/86
== END 2022-01-27 06:57 | disposition home or self-care (01) ==
LOC: ED 00:20
DX: J44.1 Chronic obstructive pulmonary disease with (acute) exacerbation (principal); J45.901 Unspecified asthma with (acute) exacerbation; R05.9 Cough, unspecified; Z98.890 Other specified postprocedural states; F17.290 Nicotine dependence, other tobacco product, uncomplicated
CPT/HCPCS: 71045; 94640; 94644; 99284; J2930